=== PATIENT | male | born 1960 | race Caucasian/White ===

== ENCOUNTER 2017-01-22 | Outpatient (CLI) | payer OTHER | END 2017-01-22 20:55 | disposition critical access hospital (66) | DX: R55 Syncope and collapse (principal) | CPT/HCPCS: A0425; A0427 ==

== ENCOUNTER 2017-01-22 21:13 | Emergency (ER) | payer OTHER ==
[2017-01-22] MEDS ORDERED: SODIUM CHLORIDE 0.9% 1,000 ML IV STA (21:28)
[2017-01-22] MEDS ORDERED: POTASSIUM BICARB 25 MEQ TABLET PO STA (22:46)
[2017-01-22] MEDS ORDERED: POTASSIUM BICARB 25 MEQ TABLET PO ONE (22:47)
== END 2017-01-22 23:10 | disposition home or self-care (01) ==
DX: R55 Syncope and collapse (principal); E87.6 Hypokalemia; I10 Essential (primary) hypertension
CPT/HCPCS: 36415; 80048; 84484; 85025; 93005; 93010; 99284; A9270

== ENCOUNTER 2017-10-15 10:49 | Outpatient (CLI) | payer OTHER ==
[2017-10-15 13:31] LABS: ALBUMIN/GLOBULIN RATIO 1.3 (1.0-2.2); BILIRUBIN,TOTAL 0.7 mg/dL (0.2-1.0); BUN - BLOOD UREA NITROGEN 19 mg/dL (6-20); CALCIUM 9.2 mg/dL (8.5-10.3); CARBON DIOXIDE - CO2 27 mmol/L (21-32); CHLORIDE 104 mmol/L (101-111); CHOLESTEROL 180 mg/dL; CREATININE 1.2 mg/dL (0.6-1.2); GFR - MDRD 62 (>89); GLUCOSE 88 mg/dL (70-100); HDL CHOLESTEROL 45 mg/dL; LDL/HDL RATIO 2.5 (<3.6); POTASSIUM 3.7 mmol/L (3.5-5.0); SODIUM 138 mmol/L (135-145); TOTAL PROTEIN 7.2 g/dL (6.7-8.2); TRIGLYCERIDES 112 mg/dL; VLDL CHOLESTEROL 22 mg/dL
== END 2017-10-15 10:50 | disposition home or self-care (01) ==
LOC: LAB.WCP 10:49
PROVIDERS: ATTEND Family Medicine
DX: E78.5 Hyperlipidemia, unspecified (principal); I10 Essential (primary) hypertension; Z12.5 Encounter for screening for malignant neoplasm of prostate
CPT/HCPCS: 36415; 80053; 80061; 84153

== ENCOUNTER 2017-11-08 08:00 | Outpatient (CLI) | payer OTHER | END 2017-11-08 08:01 | disposition home or self-care (01) | LOC: LAB.R 08:00 | PROVIDERS: ATTEND Family Medicine | DX: N39.0 Urinary tract infection, site not specified (principal) | CPT/HCPCS: 87086 ==

== ENCOUNTER 2018-01-08 01:28 | Emergency (ER) | payer OTHER ==
[2018-01-08] MEDS ORDERED: FAMOTIDINE 20 MG/2 ML VIAL IVP STA (01:41)
[2018-01-08] MEDS ORDERED: MAG HYDROX/AL HYDROX/SIMETH 30 ML UDC PO STA (01:41)
[2018-01-08] MEDS ORDERED: LIDOCAINE VISCOUS 2% 15 ML UDC MM STA (01:41)
--- NOTE | 2018-01-08 01:45 | ED Physician Documentation ---
PD HPI CHEST PAIN - Stated complaint Stated Complaint: CHEST PX - Chief complaint Chief Complaint: Cardiac - History obtained from History obtained from: Patient, Family - History of Present Illness Timing - onset: Today Timing - onset during: Eating Timing - details: Abrupt onset, Still present Quality: Sharp Location: Substernal Radiation: Back Worsened by: No: Exertion, Inspiration Associated symptoms: Nausea. No: Shortness of air, Diaphoresis, Vomiting, Feeling faint / dizzy Similar symptoms before: Has not had sx before Recently seen: Not recently seen - Additional information Additional information: Patient is a 57 year old male with no significant past medical history who is presenting to the emergency department for substernal chest pain. Patient states that he had chicken and broccoli for dinner, and then he had tacos for "dessert" patient states that he then took a tylenol with red wine to help him sleep better and he developed substernal pain that radiated to his back and epigastric region. Patient denies any cardiac history with himself or his family. Review of Systems Constitutional: denies: Fever, Chills Eyes: reports: Reviewed and negative Ears: reports: Reviewed and negative Nose: reports: Reviewed and negative Throat: denies: Sore throat Cardiac: reports: Chest pain / pressure. denies: Pedal edema, Calf pain Respiratory: denies: Dyspnea, Cough, Wheezing GI: reports: Abdominal Pain, Nausea. denies: Vomiting, Constipation, Diarrhea : reports: Reviewed and negative Skin: reports: Reviewed and negative Musculoskeletal: reports: Back pain Neurologic: denies: Generalized weakness, Focal weakness, Numbness, Headache Immunocompromised: denies: Immunocompromised PD PAST MEDICAL HISTORY - Past Medical History Past Medical History: No Cardiovascular: None Respiratory: None Neuro: None Endocrine/Autoimmune: None GI: None : None HEENT: None Psych: None Musculoskeletal: None Derm: None - Past Surgical History Past Surgical History: No - Present Medications Home Medications: Ambulatory Orders Medication Instructions Recorded Confirmed No Known Home Medications [No 05/10/13 05/10/13 Known Home Medications] predniSONE [Deltasone] 10 mg PO DAILY #26 05/10/13 - Allergies Allergies/Adverse Reactions: Allergies Allergy/AdvReac Type Severity Reaction Status Date / Time tolmetin Allergy Severe Edema Verified 01/08/18 01:41 - Social History Does the pt smoke?: No Smoking Status: Never smoker Does the pt drink ETOH?: Yes Does the pt have substance abuse?: No - Immunizations Immunizations are current?: Yes - POLST Patient has POLST: No PD ED PE NORMAL - Vitals Vital signs reviewed: Yes - General General: Alert and oriented X 3, Well developed/nourished - HEENT HEENT: Atraumatic, PERRL - Neck Neck: Supple, no meningeal sign, No JVD - Cardiac Cardiac: RRR, No murmur - Respiratory Respiratory: No respiratory distress, Clear bilaterally - Abdomen Abdomen: Soft - Derm Derm: Normal color, Warm and dry, No rash - Extremities Extremities: No deformity, Normal ROM s pain, No calf tenderness / cord - Neuro Neuro: Alert and oriented X 3, No motor deficit, No sensory deficit, Normal speech Eye Opening: Spontaneous Motor: Obeys Commands Verbal: Oriented GCS Score: 15 PD ED PE EXPANDED - Abdomen Abdomen: Tender to palpation, Epigastric Results - Vitals Vitals: Vital Signs - 24 hr 01/08/18 01/08/18 01/08/18 01:30 02:07 02:41 Temperature 36.3 C L Heart Rate 73 61 60 Respiratory 17 16 14 Rate Blood Pressure 160/99 H 152/83 H 131/79 H O2 Saturation 100 99 96 01/08/18 01/08/18 01/08/18 02:54 03:18 04:01 Temperature Heart Rate 56 L 55 L 60 Respiratory 14 18 14 Rate Blood Pressure 131/79 H 103/67 O2 Saturation 99 95 97 01/08/18 01/08/18 01/08/18 04:48 05:07 05:10 Temperature Heart Rate 48 L 50 L 56 L Respiratory 16 16 14 Rate Blood Pressure 103/74 96/59 L 96/59 L O2 Saturation 100 99 100 01/08/18 01/08/18 01/08/18 05:20 05:21 05:25 Temperature Heart Rate 71 62 66 Respiratory 14 14 18 Rate Blood Pressure 140/81 H 138/72 H O2 Saturation 99 100 100 01/08/18 01/08/18 01/08/18 05:30 05:39 05:43 Temperature Heart Rate 71 70 78 Respiratory 14 18 11 L Rate Blood Pressure 140/81 H 131/76 H O2 Saturation 99 99 96 01/08/18 01/08/18 01/08/18 05:46 05:50 05:51 Temperature Heart Rate 80 84 Respiratory 14 14 15 Rate Blood Pressure 131/83 H O2 Saturation 96 98 99 01/08/18 06:21 Temperature Heart Rate 87 Respiratory 15 Rate Blood Pressure 135/81 H O2 Saturation 99 Oxygen O2 Source Room air - EKG (time done) 0134 Rate: Rate (enter#) (68) Rhythm: NSR [place]: LAD Intervals: Normal [place] Ischemia: ST depression Compare to prior EKG: Unchanged from prior EKG Computer interpretation: Agree with computer 0528 Rate: Rate (enter#) (69) Rhythm: NSR [place]: LAD Intervals: Normal [place] Ischemia: ST depression Compare to prior EKG: Unchanged from prior EKG - Labs Labs: Laboratory Tests 01/08/18 01/08/18 01/08/18 01:50 01:50 01:50 WBC 11.0 H RBC 5.49 Hgb 16.7 Hct 49.1 MCV 89.6 MCH 30.4 MCHC 34.0 RDW 13.8 Plt Count 209 MPV 8.1 Neut # 8.8 H Lymph # 0.9 L Rhea # 0.9 Eos # 0.3 Baso # 0.1 Absolute Nucleated RBC 0.00 Nucleated RBC % 0.0 PT INR D-Dimer Sodium 137 Potassium 4.0 Chloride 99 L Carbon Dioxide 25 Anion Gap 13.0 BUN 30 H Creatinine 1.2 Estimated GFR (MDRD) 62 L Glucose 143 H Calcium 9.9 Total Bilirubin 0.6 AST 23 ALT 23 Alkaline Phosphatase 70 Troponin I < 0.04 B-Natriuretic Peptide Total Protein 7.1 Albumin 4.3 Globulin 2.8 Albumin/Globulin Ratio 1.5 Lipase 29 Blood Type Blood Type Recheck Antibody Screen 01/08/18 01/08/18 01/08/18 01:50 01:50 01:50 WBC RBC Hgb Hct MCV MCH MCHC RDW Plt Count MPV Neut # Lymph # Rhea # Eos # Baso # Absolute Nucleated RBC Nucleated RBC % PT INR D-Dimer 1528.0 H Sodium Potassium Chloride Carbon Dioxide Anion Gap BUN Creatinine Estimated GFR (MDRD) Glucose Calcium Total Bilirubin AST ALT Alkaline Phosphatase Troponin I B-Natriuretic Peptide 31 Total Protein Albumin Globulin Albumin/Globulin Ratio Lipase Blood Type Blood Type Recheck O POSITIVE Antibody Screen 01/08/18 01/08/18 01/08/18 04:50 05:00 05:00 WBC RBC Hgb Hct MCV MCH MCHC RDW Plt Count MPV Neut # Lymph # Rhea # Eos # Baso # Absolute Nucleated RBC Nucleated RBC % PT 12.5 INR 1.1 D-Dimer Sodium Potassium Chloride Carbon Dioxide Anion Gap BUN Creatinine Estimated GFR (MDRD) Glucose Calcium Total Bilirubin AST ALT Alkaline Phosphatase Troponin I < 0.04 B-Natriuretic Peptide Total Protein Albumin Globulin Albumin/Globulin Ratio Lipase Blood Type O POSITIVE Blood Type Recheck Antibody Screen NEGATIVE - Rads (name of study) chest x-ray Radiology: Final report received (mild cardiomegaly) ct angio Radiology: Final report received (no PE but 7cm aortic aneursym) PD MEDICAL DECISION MAKING - ED course Complexity details: reviewed old records, reviewed results, re-evaluated patient , considered differential, d/w patient, d/w family ED course: Patient was seen and examined at bedside. ekg was performed and showed some ST segment depressions in lateral leads but when compared to a previous a year ago there was no change, IV access was gained and labs were drawn. patient was treated with pepcid, maalox and viscous lidocaine. chest x-ray was performed. Patient's chest did not improve initially with the GI medications. patient was treated with morphine 4mg. Patient's d-dimer was elevated adn CT PE study was performed. When patient returned from imaging the results were reviewed, patient was found to have a 7cm ascending aortic aneurysm. patient was still having chest pain. Patient's HR suddlely dropped from the 60s down to 38-40. Multiple hospitals were paged. Patient was treated with atropine which improved his bradycardia. Patient was treated with a liter bolus for hypotension. Case was discussed with [facility]. First with the CT surgeon who said admit to medicine or cardiology and he would consult. Medicine said admit to cardiology. Case was discussed with pipe fitter Dr. Ladd who accepted the patient but requested CT aorta to better evaluate for dissection. Patient was treated with fentayl for repeated chest pain. patient's repeat ekg remained unchanged. Patient's second troponin remained negative. Arrangements were made with [facility]. CT aorta revealed aortic dissection. [facility] was contacted and made aware of the findings and were prepping the OR. Patient was transferred in critical condition. Departure - Departure Disposition: 02 Transfer Acute Care Hosp Clinical Impression: Aortic aneurysm, Chest pain Condition: Critical Discharge Date/Time: 01/08/18 06:55
[2018-01-08 02:13] LABS: BASOPHILS # (AUTO) 0.1 10^3/uL (0.0-0.1); BASOPHILS % (AUTO) 0.6 %; EOSINOPHILS # (AUTO) 0.3 10^3/uL (0.0-0.7); EOSINOPHILS % (AUTO) 2.9 %; HGB - HEMOGLOBIN 16.7 g/dL (14.0-18.0); LYMPHOCYTES # (AUTO) 0.9 10^3/uL (1.5-3.5); LYMPHOCYTES % (AUTO) 7.8 %; MEAN CORPUSCULAR HEMOGLOBIN 30.4 pg (27.0-31.0); MEAN CORPUSCULAR VOLUME 89.6 fL (80.0-94.0); MEAN PLATELET VOLUME 8.1 fL (7.4-11.4); MONOCYTES # (AUTO) 0.9 10^3/uL (0.0-1.0); MONOCYTES % (AUTO) 8.6 %; NEUTROPHILS # (AUTO) 8.8 10^3/uL (1.5-6.6); NEUTROPHILS % (AUTO) 80.1 %; PLT - PLATELET COUNT 209 10^3/uL (130-450); RED BLOOD COUNT 5.49 10^6/uL (4.70-6.10); RED CELL DISTRIBUTION WIDTH 13.8 % (12.0-15.0)
[2018-01-08 02:31] LABS: ALBUMIN 4.3 g/dL (3.2-5.5); ALBUMIN/GLOBULIN RATIO 1.5 (1.0-2.2); BILIRUBIN,TOTAL 0.6 mg/dL (0.2-1.0); CALCIUM 9.9 mg/dL (8.5-10.3); CREATININE 1.2 mg/dL (0.6-1.2); TOTAL PROTEIN 7.1 g/dL (6.7-8.2)
[2018-01-08] MEDS ORDERED: MORPHINE 2 MG/ML CARPUJECT IVP STA (02:31)
--- NOTE | 2018-01-08 02:41 | XRAY Report ---
EXAM: CHEST RADIOGRAPHY EXAM DATE: 01/08/2018 02:08 AM. CLINICAL HISTORY: Chest pain COMPARISON: None. TECHNIQUE: 1 view. FINDINGS: Lungs/Pleura: No focal pneumonia or edema evident. No gross pneumothorax or pleural effusion. Mediastinum: Mild cardiomegaly. Mildly tortuous aortic contour. Other: None. IMPRESSION: Mild cardiomegaly without overt heart failure. [facility] Referring Provider Line: [phone] SITE ID: [id number]
[2018-01-08] MEDS ORDERED: IOPAMIDOL-300 100 ML VIAL ONE ×2 (03:40→06:01)
[2018-01-08] MEDS: IOPAMIDOL-300 100 ML VIAL IVP ONE ×2 (04:00→06:27)
--- NOTE | 2018-01-08 04:37 | CT Preliminary Report ---
Exam: CT CHEST ANGIO (PE) IMPRESSION: 1. No acute intrathoracic abnormality. Specifically no evidence of pulmonary emboli through the segme ntal pulmonary arteries. 2. Marked fusiform aneurysmal dilatation of the ascending thoracic aorta measuring up to 7.0 cm proxi iron with effacement of the sinotubular junction. There is also minimal reflux of contrast into the IVC which can be seen with right heart dysfunction. 3. Nonobstructing bilateral nephrolithiasis [facility] SITE ID: [id number]
[2018-01-08] MEDS ORDERED: SODIUM CHLORIDE 0.9% 1,000 ML IV ONE (04:52)
--- NOTE | 2018-01-08 04:52 | CT Report ---
EXAM: CT ANGIOGRAM CHEST EXAM DATE: 01/08/2018 04:03 AM. CLINICAL HISTORY: Chest pain, elevated dimer. COMPARISON: Chest radiograph 01/08/2018.. TECHNIQUE: Routine helical imaging was performed through the chest in the pulmonary arterial phase. I V Contrast: 80 cc Isovue 300. Reconstructions: Coronal and sagittal MIP reconstructions..Sagittal and coronal. In accordance with CT protocol optimization, one or more of the following dose reduction techniques w ere utilized for this exam: automated exposure control, adjustment of mA and/or KV based on patient s ize, or use of iterative reconstructive technique. FINDINGS: Pulmonary Arteries: Diagnostic quality: Adequate through the segmental arteries. No evidence for acute or chronic pulmona ry emboli. RV/LV is within normal limits. There is no interventricular septal bowing. There is minimal reflux of contrast into the IVC which can be seen with right heart dysfunction. Lungs/Pleura: No mass or consolidation. There is minimal bibasilar dependent atelectasis. No evidence of edema. Central airways are patent. No pleural effusion or pneumothorax. Mediastinum: There is mild cardiomegaly. No significant pericardial effusion. -No significant contrast present within the left heart or aorta. There is significant dilatation of t he ascending thoracic aorta measuring up to 7.0 cm proximally with apparent effacement of the sinotub ular junction. Distal ascending thoracic aorta measures up to 4.0 cm. No significant calcific atheros clerosis of the aorta including no significant calcification of the aortic valve. -No abnormally enlarged mediastinal or hilar lymph nodes. Upper Abdomen: The kidneys are only partially visualized, but no evidence of hydronephrosis. Bilatera l punctate nonobstructing calculi present. Partially visualized exophytic left renal cyst in the inte rpolar region laterally. Otherwise unremarkable essentially noncontrast appearance of the upper abdom en. Other: Visualized lower thyroid is unremarkable. No abnormally enlarged axillary lymph nodes. No acut e osseous abnormality or suspicious focal osseous lesion. IMPRESSION: 1. No acute intrathoracic abnormality. Specifically no evidence of pulmonary emboli through the segme ntal pulmonary arteries. 2. Marked fusiform aneurysmal dilatation of the ascending thoracic aorta measuring up to 7.0 cm proxi iron with effacement of the sinotubular junction. There is also minimal reflux of contrast into the IVC which can be seen with right heart dysfunction. 3. Nonobstructing bilateral nephrolithiasis. [facility] Referring Provider Line: [phone] SITE ID: [id number]
[2018-01-08] MEDS ORDERED: ATROPINE 0.4 MG/ML VIAL IVP ONE (05:05)
[2018-01-08] MEDS ORDERED: ONDANSETRON 4 MG/2 ML VIAL IVP STA (05:14)
[2018-01-08] MEDS ORDERED: ONDANSETRON 4 MG/2 ML VIAL ONE (05:17)
[2018-01-08 05:25] LABS: INR 1.1 (0.8-1.2); PT - PROTHROMBIN TIME 12.5 secs (9.9-12.6)
[2018-01-08] MEDS ORDERED: fentaNYL 100 MCG/2 ML VIAL IVP STA ×2 (05:27→06:02)
[2018-01-08 06:21] VITALS: BP 135/81
[2018-01-08] MEDS ORDERED: IOPAMIDOL-300 100 ML VIAL IVP ONE (06:40)
--- NOTE | 2018-01-08 06:55 | CT Preliminary Report ---
Exam: CT ABDOMEN ANGIO IMPRESSION: 1. Dilated ascending thoracic aorta with extensive type A aortic dissection arising from the valve pl ane extending through the abdominal aortic bifurcation and at least minimally into the right common i liac artery, the latter not completely imaged. Dissection extends minimally into the right brachiocep halic artery as well as the left renal artery with the right renal artery supplied by the false lumen and left renal artery supplied by both lumens. Remaining major vessels supplied by the true lumen. 2. Nonspecific hypodense lesion arising from the left kidney measuring up to 2.2 cm diameter. This me asures upper limits normal fluid density. Consider nonemergent outpatient ultrasound for further eval uation to assess whether this represents a cyst versus possible solid lesion. [facility] The above findings concerning the aortic dissection were discussed with Dr. Mccoy by Dr. Carlo cnaales at 06:50 hrs on 01/08/18. SITE ID: [id number]
--- NOTE | 2018-01-08 07:04 | CT Report ---
EXAM: CT ANGIOGRAM CHEST, ABDOMEN EXAM DATE: 01/08/2018 06:23 AM. CLINICAL HISTORY: Chest pain, aortic aneursym. COMPARISONS: CT pulmonary angiogram 01/08/2018. TECHNIQUE: Routine axial helical CT angiographic imaging was performed through the chest, abdomen. IV Contrast: Present. Reconstructions: Coronal, sagittal, and coronal and sagittal MIP reconstructions. In accordance with CT protocol optimization, one or more of the following dose reduction techniques w ere utilized for this exam: automated exposure control, adjustment of mA and/or KV based on patient s ize, or use of iterative reconstructive technique. FINDINGS: Vascular Structures: There is a type a dissection of the aorta arising from the aortic valve plane ex tending through the aortic arch and inferiorly through the descending aorta and abdominal aorta with minimal extension partially visualized into the right common iliac artery. Dissection also extends in to the right brachiocephalic artery. No definite extension into the left common carotid or left subcl fariba arteries. No extension into the right common carotid or subclavian artery. -A dissection flap is near completely collapsed anteriorly beyond the level of the diaphragmatic hiat us with the true lumen supplying the celiac and superior mesenteric arteries which opacify normally. Dissection flap extends minimally into the left renal artery which is supplied both by the true and f alse lumen. False lumen supplies the right renal artery. There is minimal opacification proximally of the FLETCHER which appears to be supplied by the true lumen with again near complete anterior collapse of the dissection flap. -Possible minimal extension of the dissection into the right common iliac artery. As on recent CT pulmonary angiogram there is significant fusiform dilatation of the ascending thoraci c aorta with effacement of the sinotubular junction measuring up to 6.7 cm. There is mild stenosis of both the proximal celiac and superior mesenteric arteries with post dilatat ion, greater involvement of the celiac. Hepatic arterial supply appears conventional. There are singl e bilateral renal arteries. Lungs/Pleura: No consolidation, nodules, or edema. No effusions or pneumothorax. Mediastinum: Normal. No cardiac enlargement or adenopathy. Abdominal Organs: The liver, spleen, pancreas, adrenal glands, gallbladder and bile ducts are unremar kable. There is nonobstructing bilateral punctate nephrolithiasis. Left renal hypodense lesion measur es up to 20 Hounsfield units and 22 mm diameter (/).. Peritoneal Cavity: Normal. No free fluid, free air, or acute inflammatory process. Pelvic Organs: Not included on the exam. Bones: No significant abnormality. Other: None. IMPRESSION: 1. Dilated ascending thoracic aorta with extensive type A aortic dissection arising from the valve pl ane extending through the abdominal aortic bifurcation and at least minimally into the right common i liac artery, the latter not completely imaged. Dissection extends minimally into the right brachiocep halic artery as well as the left renal artery with the right renal artery supplied by the false lumen and left renal artery supplied by both lumens. Remaining major vessels supplied by the true lumen. 2. Nonspecific hypodense lesion arising from the left kidney measuring up to 2.2 cm diameter. This me asures upper limits normal fluid density. Consider nonemergent outpatient ultrasound for further eval uation to assess whether this represents a cyst versus possible solid lesion. KAIA The above findings concerning the aortic dissection were discussed with Dr. Mccoy by Dr. Carlo canales at 06:50 hrs on 01/08/18. Referring Provider Line: [phone] SITE ID: [id number]
--- NOTE | 2018-01-08 07:04 | CT Report ---
EXAM: CT ANGIOGRAM CHEST, ABDOMEN EXAM DATE: 01/08/2018 06:23 AM. CLINICAL HISTORY: Chest pain, aortic aneursym. COMPARISONS: CT pulmonary angiogram 01/08/2018. TECHNIQUE: Routine axial helical CT angiographic imaging was performed through the chest, abdomen. IV Contrast: Present. Reconstructions: Coronal, sagittal, and 3D MIP reconstructions of the aorta. In accordance with CT protocol optimization, one or more of the following dose reduction techniques w ere utilized for this exam: automated exposure control, adjustment of mA and/or KV based on patient s ize, or use of iterative reconstructive technique. FINDINGS: Vascular Structures: There is a type A dissection of the aorta arising from the aortic valve plane ex tending through the aortic arch and inferiorly through the descending aorta and abdominal aorta with minimal extension partially visualized into the right common iliac artery. Dissection also extends in to the right brachiocephalic artery. No definite extension into the left common carotid or left subcl fariba arteries. No extension into the right common carotid or subclavian artery. -A dissection flap is near completely collapsed anteriorly beyond the level of the diaphragmatic hiat us with the true lumen supplying the celiac and superior mesenteric arteries which opacify normally. Dissection flap extends minimally into the left renal artery which is supplied both by the true and f alse lumen. False lumen supplies the right renal artery. There is minimal opacification proximally of the FLETCHER which appears to be supplied by the true lumen with again near complete anterior collapse of the dissection flap. -Possible minimal extension of the dissection into the right common iliac artery. As on recent CT pulmonary angiogram, there is significant fusiform dilatation of the ascending thorac ic aorta with effacement of the sinotubular junction measuring up to 6.7 cm. There is mild stenosis of both the proximal celiac and superior mesenteric arteries with poststenotic dilatation, greater involvement of the celiac. Hepatic arterial supply appears conventional. There a re single bilateral renal arteries. Lungs/Pleura: No consolidation, nodules, or edema. No effusions or pneumothorax. Mediastinum: Normal. No cardiac enlargement or adenopathy. Abdominal Organs: The liver, spleen, pancreas, adrenal glands, gallbladder and bile ducts are unremar kable. There is nonobstructing bilateral punctate nephrolithiasis. Left renal hypodense lesion measur es up to 20 Hounsfield units and 22 mm diameter (2/83). Peritoneal Cavity: Normal. No free fluid, free air, or acute inflammatory process. Pelvic Organs: Not included on the exam. Bones: No significant abnormality. Other: None. IMPRESSION: 1. Dilated ascending thoracic aorta with extensive type A aortic dissection arising from the valve pl ane extending through the abdominal aortic bifurcation and at least minimally into the right common i liac artery, the latter not completely imaged. Dissection extends minimally into the right brachiocep halic artery as well as the left renal artery with the right renal artery supplied by the false lumen and left renal artery supplied by both lumens. Remaining major vessels supplied by the true lumen. 2. Nonspecific hypodense lesion arising from the left kidney measuring up to 2.2 cm diameter. This me asures upper limits normal fluid density. Consider nonemergent outpatient ultrasound for further eval uation to assess whether this represents a cyst versus possible solid lesion. [facility] The above findings concerning the aortic dissection were discussed with Dr. Mccoy by Dr. Carlo canales at 06:50 hrs on 01/08/18. Referring Provider Line: [phone] SITE ID: [id number]
== END 2018-01-08 06:55 | disposition short-term general hospital (02) ==
LOC: ED 01:28
DX: I71.01 Dissection of thoracic aorta (principal); R00.1 Bradycardia, unspecified; I95.9 Hypotension, unspecified; I51.7 Cardiomegaly; R79.89 Other specified abnormal findings of blood chemistry
CPT/HCPCS: 36415; 71045; 71275; 74175; 80053; 83690; 83880; 84484; 85025; 85379; 85610; 86850; 86900; 86901; 93005; 96361; 96374; 96375; 96376; 99285; A9270; Q9967

== ENCOUNTER 2018-01-28 08:49 | Outpatient (CLI) | payer OTHER | END 2018-01-28 08:50 | disposition home or self-care (01) | LOC: LAB.R 08:49 | PROVIDERS: ATTEND Internal Medicine Cardiovascular Disease | DX: Z95.2 Presence of prosthetic heart valve (principal) | CPT/HCPCS: 85610 ==

== ENCOUNTER 2018-02-07 09:55 | Outpatient (CLI) | payer OTHER | END 2018-02-07 09:56 | disposition home or self-care (01) | LOC: NS 09:55 | PROVIDERS: ATTEND Family Medicine | DX: Z71.3 Dietary counseling and surveillance (principal); R73.01 Impaired fasting glucose; I38 Endocarditis, valve unspecified; I71.00 Dissection of unspecified site of aorta; Z68.25 Body mass index [BMI] 25.0-25.9, adult | CPT/HCPCS: 97802 ==

== ENCOUNTER 2018-02-15 09:08 | Outpatient (CLI) | payer OTHER | END 2018-02-15 09:09 | disposition home or self-care (01) | LOC: LAB 09:08 | PROVIDERS: ATTEND Internal Medicine Cardiovascular Disease | DX: Z95.2 Presence of prosthetic heart valve (principal); Z79.01 Long term (current) use of anticoagulants | CPT/HCPCS: 85610 ==

== ENCOUNTER 2018-02-17 09:21 | Outpatient (CLI) | payer OTHER | END 2018-02-17 09:22 | disposition home or self-care (01) | LOC: RT 09:21 | PROVIDERS: ATTEND Internal Medicine Cardiovascular Disease | DX: I48.91 Unspecified atrial fibrillation (principal) | CPT/HCPCS: 93005 ==

== ENCOUNTER 2018-02-18 07:52 | Outpatient (CLI) | payer OTHER ==
[2018-02-18 08:51] LABS: ALBUMIN/GLOBULIN RATIO 1.3 (1.0-2.2); ALKALINE PHOSPHATASE 77 IU/L (42-121); ALT ALANINE AMINOTRANSFERASE 24 IU/L (10-60); AST ASPARTATE AMINOTRANSFERASE 19 IU/L (10-42); BILIRUBIN,TOTAL 0.4 mg/dL (0.2-1.0); BUN - BLOOD UREA NITROGEN 21 mg/dL (6-20); CALCIUM 9.2 mg/dL (8.5-10.3); CARBON DIOXIDE - CO2 24 mmol/L (21-32); CHLORIDE 109 mmol/L (101-111); CHOL/HDL RATIO 3.2 (<5.0); CHOLESTEROL 118 mg/dL; CREATININE 1.2 mg/dL (0.6-1.2); GFR - MDRD 62 (>89); GLUCOSE 99 mg/dL (70-100); HDL CHOLESTEROL 37 mg/dL; LDL CHOLESTEROL,CALCULATED 70 mg/dL; LDL/HDL RATIO 1.9 (<3.6); SODIUM 139 mmol/L (135-145); TOTAL PROTEIN 7.1 g/dL (6.7-8.2); VLDL CHOLESTEROL 11 mg/dL
[2018-02-18 09:11] LABS: THYROID STIMULATING HORMONE 2.54 uIU/mL (0.34-5.60)
[2018-02-18 09:13] LABS: FREE T4 (FREE THYROXINE) 1.12 ng/dL (0.58-1.64)
== END 2018-02-18 07:53 | disposition home or self-care (01) ==
LOC: LAB 07:52
PROVIDERS: ATTEND Internal Medicine Cardiovascular Disease
DX: I48.91 Unspecified atrial fibrillation (principal)
CPT/HCPCS: 36415; 80053; 80061; 83721; 84439; 84443

== ENCOUNTER 2018-03-01 11:41 | Outpatient (CLI) | payer OTHER | END 2018-03-01 11:42 | disposition home or self-care (01) | LOC: LAB.N 11:41 | PROVIDERS: ATTEND Internal Medicine Cardiovascular Disease | DX: Z95.2 Presence of prosthetic heart valve (principal) | CPT/HCPCS: 85610 ==

== ENCOUNTER 2018-03-07 16:20 | Observation (INO) | payer OTHER ==
[2018-03-07 17:07] LABS: BASOPHILS # (AUTO) 0.1 10^3/uL (0.0-0.1); BASOPHILS % (AUTO) 1.5 %; EOSINOPHILS # (AUTO) 0.4 10^3/uL (0.0-0.7); EOSINOPHILS % (AUTO) 5.7 %; HGB - HEMOGLOBIN 14.3 g/dL (14.0-18.0); LYMPHOCYTES # (AUTO) 0.9 10^3/uL (1.5-3.5); LYMPHOCYTES % (AUTO) 14.3 %; MEAN CORPUSCULAR HEMOGLOBIN 28.4 pg (27.0-31.0); MEAN CORPUSCULAR HGB CONC 32.3 g/dL (32.0-36.0); MEAN CORPUSCULAR VOLUME 88.1 fL (80.0-94.0); MEAN PLATELET VOLUME 8.2 fL (7.4-11.4); MONOCYTES # (AUTO) 0.7 10^3/uL (0.0-1.0); MONOCYTES % (AUTO) 10.8 %; NEUTROPHILS # (AUTO) 4.3 10^3/uL (1.5-6.6); NEUTROPHILS % (AUTO) 67.7 %; PLT - PLATELET COUNT 272 10^3/uL (130-450); RED BLOOD COUNT 5.04 10^6/uL (4.70-6.10); RED CELL DISTRIBUTION WIDTH 14.7 % (12.0-15.0); WHITE BLOOD COUNT 6.3 x10^3/uL (4.8-10.8)
[2018-03-07 17:17] LABS: ALBUMIN 4.4 g/dL (3.2-5.5); ALBUMIN/GLOBULIN RATIO 1.5 (1.0-2.2); BILIRUBIN,TOTAL 0.5 mg/dL (0.2-1.0); CALCIUM 9.3 mg/dL (8.5-10.3); CREATININE 1.2 mg/dL (0.6-1.2); TOTAL PROTEIN 7.4 g/dL (6.7-8.2)
--- NOTE | 2018-03-07 17:50 | ED Physician Documentation ---
PD HPI FOCAL NEURO - Stated complaint Stated Complaint: DOUBLE VISION/PX IN R ARM - Chief complaint Chief Complaint: Cardiac - History obtained from History obtained from: Patient - History of Present Illness Timing - onset: Yesterday (he has had intermittent diplopia with normal vision in each eye but doubled when both open. This was yesterday and then this morning had weakness in right arm where he could not hold object, that lasted just 5-10 minutes. Feeling of aching in right arm today. Vision is okay at this time and arm is not feeling weak right now. Talked with his Cardiology office who directed him to come to ER.) Timing - duration: Minutes Timing - details: Abrupt onset, Now resolved Severity of deficit: Moderate Weakness: Arm, Right Numbness: Arm, Right Associated symptoms: No: Headache, Nausea / vomiting, Neck pain Contributing factors: positive: Anticoagulated, Atrial fibrillation Baseline status: positive: A&OX3, ambulatory, indep Similar symptoms before: Has not had sx before (had chest pain and some arm discomfort with aortic dissection in Dec, that had surgery (graft) and aortic valve replacement. He has been doing okay. In fib post operatively. On anticoagulants.) Recently seen: Surgery (Early Dec emergently for aortic dissection.) Review of Systems Constitutional: denies: Fever, Chills Nose: denies: Rhinorrhea / runny nose, Congestion Throat: denies: Sore throat Cardiac: denies: Chest pain / pressure, Palpitations Respiratory: denies: Dyspnea, Cough GI: denies: Abdominal Pain, Nausea, Vomiting, Diarrhea Skin: denies: Rash, Lesions Neurologic: denies: Generalized weakness, Difficulty speaking, Near syncope, Syncope Endocrine: reports: Easy bruising / bleeding. denies: Weight loss PD PAST MEDICAL HISTORY - Past Medical History Cardiovascular: None Respiratory: None Neuro: None Endocrine/Autoimmune: None GI: None : None HEENT: None Psych: None Musculoskeletal: None Derm: None - Past Surgical History Past Surgical History: No - Present Medications Home Medications: Ambulatory Orders Medication Instructions Recorded Confirmed Amiodarone [Pacerone] 200 mg PO DAILY 03/07/18 Metoprolol Succinate [Toprol Xl] 30 mg PO DAILY 03/07/18 Warfarin [Coumadin] 1.5 mg PO 1400 03/07/18 Aspirin [Aspirin EC] 81 mg PO DAILYWM 03/08/18 03/08/18 Atorvastatin Calcium 20 mg PO QPM 03/08/18 03/08/18 - Allergies Allergies/Adverse Reactions: Allergies Allergy/AdvReac Type Severity Reaction Status Date / Time tolmetin Allergy Severe Edema Verified 03/07/18 16:29 - Social History Does the pt smoke?: No Smoking Status: Never smoker Does the pt drink ETOH?: Yes Does the pt have substance abuse?: No - Family History Family history: reports: Non contributory - Immunizations Immunizations are current?: Yes - POLST Patient has POLST: No PD ED PE NORMAL - Vitals Vital signs reviewed: Yes - General General: Alert and oriented X 3, No acute distress, Well developed/nourished - HEENT HEENT: Atraumatic, PERRL, EOMI, Pharynx benign - Neck Neck: Supple, no meningeal sign, No adenopathy, No bruit - Cardiac Cardiac: No murmur. No: RRR (irregular but normal rate) - Respiratory Respiratory: Clear bilaterally - Abdomen Abdomen: Soft, Non tender - Back Back: No CVA TTP - Derm Derm: Normal color, Warm and dry - Extremities Extremities: No deformity, No tenderness to palpate, Normal ROM s pain, No edema , No calf tenderness / cord - Neuro Neuro: Alert and oriented X 3, deputy juvenile officer 2-12 intact, No motor deficit, No sensory deficit, Normal speech Eye Opening: Spontaneous Motor: Obeys Commands Verbal: Oriented GCS Score: 15 - Psych Psych: Normal mood, Normal affect NIHSS - Level of Consciousness Level of consciousness: (0) Alert, Keenly responsive LOC Questions: (0) Answers both Q's correct LOC Commands: (0) Performs both correctly - Gaze Best Gaze: (0) Normal - Visual Visual: (0) No loss - Facial Palsy Facial Palsy: (0) Normal, symmetrical movement - Motor Arms (both separate) Motor Arm (right): (0) No drift Motor Arm (left): (0) No drift - Motor Legs (both separate) Motor Leg (right): (0) No drift Motor Leg (left): (0) No drift - Limb Ataxia Limb Ataxia: (0) Absent - Sensory Sensory: (0) Normal - Best Language Best Language: (0) No aphasia - Dysarthria Dysarthria: (0) Normal - Extinction and Inattention (formally neg Extinction and inattention: (0) No abnormality - Total Score/Results Total Score/Result: 0 Results - Vitals Vitals: Vital Signs - 24 hr 03/07/18 03/07/18 03/07/18 16:25 17:15 18:00 Temperature 36.7 C Heart Rate 90 84 86 Respiratory 16 16 16 Rate Blood Pressure 164/97 H 148/99 H 152/100 H O2 Saturation 99 97 97 03/07/18 20:02 Temperature Heart Rate 84 Respiratory 16 Rate Blood Pressure 135/80 H O2 Saturation 97 Oxygen O2 Source Room air - Labs Labs: Laboratory Tests 03/07/18 03/07/18 03/07/18 16:55 16:55 16:55 WBC 6.3 RBC 5.04 Hgb 14.3 Hct 44.4 MCV 88.1 MCH 28.4 MCHC 32.3 RDW 14.7 Plt Count 272 MPV 8.2 Neut # 4.3 Lymph # 0.9 L Isabella # 0.7 Eos # 0.4 Baso # 0.1 Absolute Nucleated RBC 0.00 Nucleated RBC % 0.0 PT 36.1 H INR 3.3 H Sodium 136 Potassium 4.0 Chloride 104 Carbon Dioxide 25 Anion Gap 7.0 BUN 20 Creatinine 1.2 Estimated GFR (MDRD) 62 L Glucose 96 Calcium 9.3 Magnesium Total Bilirubin 0.5 AST 21 ALT 25 Alkaline Phosphatase 78 Total Protein 7.4 Albumin 4.4 Globulin 3.0 Albumin/Globulin Ratio 1.5 Lipase 31 03/07/18 16:55 WBC RBC Hgb Hct MCV MCH MCHC RDW Plt Count MPV Neut # Lymph # Isabella # Eos # Baso # Absolute Nucleated RBC Nucleated RBC % PT INR Sodium Potassium Chloride Carbon Dioxide Anion Gap BUN Creatinine Estimated GFR (MDRD) Glucose Calcium Magnesium 2.3 Total Bilirubin AST ALT Alkaline Phosphatase Total Protein Albumin Globulin Albumin/Globulin Ratio Lipase - Rads (name of study) head CT Radiology: Prelim report reviewed (no acute bleed/ mass) PD MEDICAL DECISION MAKING - ED course Complexity details: considered differential (intermittent focal neuro symptoms. On blood thinner, so concern for small bleeds, but not seen on CT. Consider embolic but is on blood thinner. Could have very small focal CVA vs. TIA and so would want to evaluate with MRI, unavailable a this time. No signs of infection , but could consider septic emboli as well. ), d/w patient, d/w sql server consultant (manager validation [facility] - Continue the Coumadin and ASA, work up Neurologically. Then talked with Dr. Park, Hospitalist. ) Departure - Departure Disposition: ED Place in Observation Clinical Impression: Right arm weakness TIA (transient ischemic attack) Qualifiers: Transient cerebral ischemia type: unspecified Qualified Code(s): G45.9 - Transient cerebral ischemic attack, unspecified Condition: Stable Record reviewed to determine appropriate education?: Yes Discharge Date/Time: 03/07/18 21:37
[2018-03-07] MEDS ORDERED: SODIUM CHLORIDE 0.9% 1,000 ML IV ONE (18:22)
[2018-03-07] MEDS ORDERED: SODIUM CHLORIDE 0.9% 1,000 ML IV STA (18:25)
[2018-03-07 18:57] LABS: INR 3.3 (0.8-1.2); PT - PROTHROMBIN TIME 36.1 secs (9.9-12.6)
--- NOTE | 2018-03-07 19:12 | CT Report ---
EXAM: CT HEAD EXAM DATE: 03/07/2018 06:57 PM. CLINICAL HISTORY: Diplopia transient and then right arm weak , transient. COMPARISON: None. TECHNIQUE: Multiaxial CT images were obtained from the foramen magnum to the vertex. Reformats: Coron al. IV contrast: None. In accordance with CT protocol optimization, one or more of the following dose reduction techniques w ere utilized for this exam: automated exposure control, adjustment of mA and/or KV based on patient s ize, or use of iterative reconstructive technique. FINDINGS: Parenchyma: No intraparenchymal hemorrhage. No evidence of mass, midline shift, or CT findings of inf arction. Sifuentes-white differentiation is distinct. Extraaxial Spaces: Normal for age. No subdural or epidural collections. Ventricles: Normal in size and position. Sinuses and Orbits: Minimal mucosal thickening in ethmoid and maxillary sinuses. Small air-fluid leve ls and sphenoid sinus. Bones: Unremarkable. Other: None. IMPRESSION: Mild evidence of sinusitis. Otherwise normal head CT scan. [facility] Referring Provider Line: [phone] SITE ID: [id number]
[2018-03-07] MEDS ORDERED: oxyCODONE 5 MG TABLET PO PRN ×2 (20:45)
[2018-03-07] MEDS ORDERED: ZOLPIDEM 5 MG TABLET PO PRN (20:45)
[2018-03-07] MEDS ORDERED: SODIUM CHLORIDE FLUSH 0.9% 10 ML SYRINGE IVP PRN (20:45)
[2018-03-07] MEDS ORDERED: PROCHLORPERAZINE 10 MG/2 ML VIAL IVP PRN (20:45)
[2018-03-07] MEDS ORDERED: ONDANSETRON 4 MG/2 ML VIAL IVP PRN (20:45)
[2018-03-07] MEDS ORDERED: ATORVASTATIN 40 MG TABLET PO SCH (21:00)
[2018-03-07] MEDS ORDERED: IOPAMIDOL-300 100 ML VIAL ONE (21:09)
[2018-03-07] MEDS ORDERED: IOPAMIDOL-300 100 ML VIAL IVP ONE (21:39)
--- NOTE | 2018-03-07 21:47 | HISTORY & PHYSICAL EXAMINATION ---
Chief Complaint - Chief Complaint Chief Complaint: Right arm weakness History of Present Illness - Admitted From Admitted From:: Emergency Department - History Obtained From Records Reviewed: Yes History obtained from: Patient Exam Limitations: None - History of Present Illness HPI Comment/Other: Patient is a 57-year-old gentleman with a past medical history significant for a type a aortic dissection and a bicuspid aortic valve status post aortic graft and aortic valve replacement in December 2017 with postop complication of atrial fibrillation who presents to the emergency department with a chief complaint of right arm weakness. The patient states that he was in his normal state of health until about 2 days ago when he states that he was sitting and began to experience diplopia. He describes double vision that lasted for about 3-4 minutes after which he felt lightheaded for about 5 minutes but then symptoms completely resolved. He states that that morning he had drank 2 cups of coffee and had had very little to drink otherwise. The patient states that the following day while he was cutting up a cantaloupe he began to notice that his right arm became very weak. He states that he went to sisal picker a cup of coffee and could not do it. He states that this lasted for about 5 minutes before it completely resolved. He states that today he was lying down to rest when he began having pain in his right arm. He states that his right arm has never hurt like this before. He states the pain was a dull aching pain and lasted for about 15 minutes but then completely resolved. Once he told his what had been happening his asked him to go to the emergency department. Initially the patient was reluctant but finally agreed to come in. Patient denies any fevers, chills, headache, blurred vision, runny nose, sore throat, nasal congestion, difficulty swallowing, chest pain, shortness of air, orthopnea, PND, increased lower extremity swelling, abdominal pain, nausea, vomiting, diarrhea, constipation, urinary urgency, urinary frequency, dysuria, joint pain, joint swelling, muscle aches, back pain, neck stiffness, rash, skin changes or hair loss. On presentation to the emergency department the patient was afebrile he was slightly tachycardic and hypertensive but otherwise was not in any respiratory distress and saturating well on room air. The patient's lab work was within normal limits. The patient's INR was 3.3 as he is on Coumadin for his atrial fibrillation. The patient had no deficits on his neurologic examination. The patient did undergo a CT of his head in the emergency department which revealed mild evidence of sinusitis but otherwise was normal. The patient's EKG showed that the patient was in atrial flutter with no acute ischemic changes. Given the patient's nonspecific symptoms and history of atrial fibrillation emergency room physician was concerned about the possibility of a stroke or other neurologic condition such as MS and asked if we could observe the patient for neuro checks and an MRI as well as CT angiogram of the head and neck. History - Past Medical History Cardiovascular: reports: None, Atrial fibrillation (On Coumadin), Valve disorder (Bicuspid aortic valve status post valve replacement), Other (Type aortic dissection status post aortic graft) Respiratory: reports: None Neuro: reports: None Endocrine/Autoimmune: reports: None GI: reports: None : reports: None HEENT: reports: None Psych: reports: None Musculoskeletal: reports: None Derm: reports: None MRSA Hx?: No - Past Surgical History Cardiovascular: reports: Valve replacement, Vascular surgery (Graft of aortic) - Family & Social History Family History: Mother: (Mother had MS), Father: Alive and Well, Sister : Alive and Well, Brother: Alive and Well Living arrangement: At home Living Situation: With spouse/s.o. Social History Notes: Patient lives in [place] with his . He has 4 children and 5 grandchildren. He works for [employer]. He is a non- smoker, does not drink alcohol and denies any illicit drug use. - POLST Patient has POLST: No POLST Status: Full Code Meds/Allgy - Home Medications Home Medications: Ambulatory Orders Medication Instructions Recorded Confirmed Amiodarone [Pacerone] 200 mg PO DAILY 03/07/18 03/07/18 Aspirin 81 mg PO 03/07/18 Atorvastatin [Lipitor] 20 mg 03/07/18 Metoprolol Succinate [Toprol Xl] 30 mg PO DAILY 03/07/18 03/07/18 Warfarin [Coumadin] 1.5 mg PO 1400 03/07/18 03/07/18 - Allergies Allergies/Adverse Reactions: Allergies Allergy/AdvReac Type Severity Reaction Status Date / Time tolmetin Allergy Severe Edema Verified 03/07/18 16:29 Review of Systems - Other Findings Other Findings: A comprehensive review of systems was performed the pertinent positives and negatives are stated above in the HPI and the remainder of the review of systems is negative. Exam - Vital Signs Reviewed Vital Signs: Yes Vital Signs: Vital Signs x48h Temp Pulse Pulse Resp BP BP Pulse Ox 03/07/18 21:34 36.9 C 107 H 16 144/86 H 98 03/07/18 21:12 88 18 146/96 H 96 - Physical Exam General Appearance: positive: No acute distress, Alert Eyes Bilateral: positive: Normal inspection, PERRL, EOMI, No lid inflammation, Conjunctivae nml, No scleral icterus ENT: positive: ENT inspection nml, Pharynx nml, No signs of dehydration. negative: Purulent nasal drainage, Pharyngeal erythema, Oral lesions Neck: positive: Nml inspection, Thyroid nml, No JVD, Trachea midline. negative : Thyromegaly, Lymphadenopathy (R), Lymphadenopathy (L), Stiff neck, Carotid bruit, Tracheal deviation Respiratory: positive: Chest non-tender, No respiratory distress, Breath sounds nml. negative: Wheezes, Rales, Rhonchi Cardiovascular: positive: No murmur, No gallop, Irregularly irregular Peripheral Pulses: positive: 2+ Abdomen: positive: Non-tender, No organomegaly, Nml bowel sounds, No distention. negative: Guarding, Rebound, Hepatomegaly Back: positive: Nml inspection. negative: CVA tenderness (R), CVA tenderness (L ) Skin: positive: Color nml, No rash, Warm. negative: Cyanosis, Diaphoresis, Pallor, Skin rash Extremities: positive: Non-tender, Full ROM, Nml appearance, No pedal edema Neurologic/Psychiatric: positive: Oriented x3, CN's nml (2-12), Motor nml, Sensation nml, Mood/affect nml Conclusion/Plan - Problem List (1) Right arm weakness Conclusion/Plan: Patient presented with right arm weakness which occurred yesterday but had completely resolved on presentation. Patient had had several transient neurologic symptoms. The patient had diplopia 2 days ago and then noted some right arm pain in the same arm that was weak yesterday. All the symptoms had resolved on presentation to the emergency department. The patient does have history of atrial fibrillation and has recently had an aortic valve replacement and had a type a dissection of his aorta status post graft. The patient did have a therapeutic INR of 3.3. The patient is on aspirin and Lipitor. Patient was placed in observation for neuro checks, CT angiogram of the head and neck and MRI. He will also undergo a echocardiogram Plan: Neurochecks Echocardiogram CT angios head and neck MRI Continue aspirin Increase Lipitor to 80 mg Continue Coumadin (2) Atrial fibrillation Conclusion/Plan: Patient has history of atrial fibrillation and is on Coumadin for anticoagulation as well as amiodarone for rhythm control and metoprolol for rate control. Patient does appear to be in atrial flutter on EKG but rate is controlled. Plan: Continue Coumadin Monitor INR Continue amiodarone and metoprolol. Qualifiers: Atrial fibrillation type: chronic Qualified Code(s): I48.2 - Chronic atrial fibrillation - Lab Results Lab results reviewed: Yes Fish Bones: 03/07/18 16:55 03/07/18 16:55 Other Lab Results: Laboratory Results WBC 6.3 x10^3/uL (4.8-10.8) 03/07/18 16:55 RBC 5.04 10^6/uL (4.70-6.10) 03/07/18 16:55 Hgb 14.3 g/dL (14.0-18.0) 03/07/18 16:55 Hct 44.4 % (42.0-52.0) 03/07/18 16:55 MCV 88.1 fL (80.0-94.0) 03/07/18 16:55 MCH 28.4 pg (27.0-31.0) 03/07/18 16:55 MCHC 32.3 g/dL (32.0-36.0) 03/07/18 16:55 RDW 14.7 % (12.0-15.0) 03/07/18 16:55 Plt Count 272 10^3/uL (130-450) 03/07/18 16:55 MPV 8.2 fL (7.4-11.4) 03/07/18 16:55 Neut # 4.3 10^3/uL (1.5-6.6) 03/07/18 16:55 Lymph # 0.9 10^3/uL (1.5-3.5) L 03/07/18 16:55 [place] # 0.7 10^3/uL (0.0-1.0) 03/07/18 16:55 Eos # 0.4 10^3/uL (0.0-0.7) 03/07/18 16:55 Baso # 0.1 10^3/uL (0.0-0.1) 03/07/18 16:55 Absolute Nucleated RBC 0.00 x10^3/uL 03/07/18 16:55 Nucleated RBC % 0.0 /100WBC 03/07/18 16:55 PT 36.1 secs (9.9-12.6) H 03/07/18 16:55 INR 3.3 (0.8-1.2) H 03/07/18 16:55 Sodium 136 mmol/L (135-145) 03/07/18 16:55 Potassium 4.0 mmol/L (3.5-5.0) 03/07/18 16:55 Chloride 104 mmol/L (101-111) 03/07/18 16:55 Carbon Dioxide 25 mmol/L (21-32) 03/07/18 16:55 Anion Gap 7.0 (6-13) 03/07/18 16:55 BUN 20 mg/dL (6-20) 03/07/18 16:55 Creatinine 1.2 mg/dL (0.6-1.2) 03/07/18 16:55 Estimated GFR (MDRD) 62 (>89) L 03/07/18 16:55 Glucose 96 mg/dL (70-100) 03/07/18 16:55 Calcium 9.3 mg/dL (8.5-10.3) 03/07/18 16:55 Magnesium 2.3 mg/dL (1.7-2.8) 03/07/18 16:55 Total Bilirubin 0.5 mg/dL (0.2-1.0) 03/07/18 16:55 AST 21 IU/L (10-42) 03/07/18 16:55 ALT 25 IU/L (10-60) 03/07/18 16:55 Alkaline Phosphatase 78 IU/L (42-121) 03/07/18 16:55 Total Protein 7.4 g/dL (6.7-8.2) 03/07/18 16:55 Albumin 4.4 g/dL (3.2-5.5) 03/07/18 16:55 Globulin 3.0 g/dL (2.1-4.2) 03/07/18 16:55 Albumin/Globulin Ratio 1.5 (1.0-2.2) 03/07/18 16:55 Lipase 31 U/L (22-51) 03/07/18 16:55 - Diagnostic Imaging Results Diagnostic Imaging Results: positive: Final report reviewed Diagnostic Imaging Results Comments: EXAM: CT/HEADWO ([id number]) EXAM: CT HEAD EXAM DATE: 03/07/2018 06:57 PM. CLINICAL HISTORY: Diplopia transient and then right arm weak , transient. COMPARISON: None. TECHNIQUE: Multiaxial CT images were obtained from the foramen magnum to the vertex. Reformats: Coronal. IV contrast: None. In accordance with CT protocol optimization, one or more of the following dose reduction techniques were utilized for this exam: automated exposure control, adjustment of mA and/or KV based on patient size, or use of iterative reconstructive technique. FINDINGS: Parenchyma: No intraparenchymal hemorrhage. No evidence of mass, midline shift, or CT findings of infarction. Sifuentes-white differentiation is distinct. Extraaxial Spaces: Normal for age. No subdural or epidural collections. Ventricles: Normal in size and position. Sinuses and Orbits: Minimal mucosal thickening in ethmoid and maxillary sinuses. Small air-fluid levels and sphenoid sinus. Bones: Unremarkable. Other: None. IMPRESSION: Mild evidence of sinusitis. Otherwise normal head CT scan. EXAM: [id number] CT/NECKANG ([id number]) EXAM: CT ANGIOGRAM NECK EXAM DATE: 03/07/2018 09:43 PM. CLINICAL HISTORY: Possible TIA with right arm weakness. COMPARISON: None. TECHNIQUE: Routine axial helical imaging was performed from the skull base through the aortic arch. Reconstructions: Routine multiplanar 3D MIP reconstructions. IV Contrast: Yes. Evaluation of arterial stenosis is based on a NASCET method of measurement. In accordance with CT protocol optimization, one or more of the following dose reduction techniques were utilized for this exam: automated exposure control, adjustment of mA and/or KV based on patient size, or use of iterative reconstructive technique. FINDINGS: Contrast refluxes into veins of left neck. Artifact from motion and dense venous contrast obscures cervical vessels. Right Carotid: Proximal right CCA is obscured by venous contrast. CCA otherwise normal in caliber. There is tortuosity of the mid cervical ICA. No significant stenosis.. ICA otherwise normal in course. Left Carotid: Approximately half of CCA course obscured by venous contrast. Visualized components normal in caliber. There is beaded appearance of mid left cervical ICA. There are bands of mild narrowing (less than 20%). Vertebrals: Left vertebral artery is obscured to the C1 level. Distal left vertebral normal in caliber. Proximal right vertebral artery is not visualized. Right vertebral is visualized abdomen above the C5 level and is normal in caliber. Intracranial Circulation: Normal. No stenoses or aneurysms of the visualized vessels. Other: The bones, soft tissues, and lung apices are within normal limits. IMPRESSION: 1. 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 2. No right internal carotid artery stenosis. 3. Venous contrast obscures portions of both common carotid and both vertebral arteries as above. EXAM: [id number] CT/HEADANG ([id number]) EXAM: CT ANGIOGRAM HEAD. CT SCAN OF THE HEAD WITHOUT AND WITH CONTRAST. EXAM DATE: 03/07/2018 09:42 PM CLINICAL HISTORY: Possible TIA w right arm weakness. COMPARISON: Head CT 03/07/2018. TECHNIQUE: - CT Scan Head: Using a multidetector scanner, axial images were acquired from the foramen magnum to the skull vertex prior to and following contrast administration. - CT Angiogram: Using a multidetector scanner, high-resolution axial images were acquired from the skull base through vertex following rapid infusion of intravenous contrast. Reformats: Multiplanar MIP reformats were reconstructed. Nascet criteria used for stenosis measurement. IV Contrast: Yes. In accordance with CT protocol optimization, one or more of the following dose reduction techniques were utilized for this exam: automated exposure control, adjustment of mA and/or KV based on patient size, or use of iterative reconstructive technique. FINDINGS: NON-CONTRAST HEAD: Parenchyma: No intraparenchymal hemorrhage. No evidence of mass, midline shift, or CT findings of infarction. Sifuentes-white differentiation is distinct. Extraaxial Spaces: Normal for age. No subdural or epidural collections identified. Ventricles: Normal in size and position. Sinuses and orbits: Mild paranasal sinus mucosal thickening. No sinus fluid levels. Bones: No evidence of fracture or calvarial defect. Other: None. POST-CONTRAST HEAD: No abnormal enhancement. CT ANGIOGRAM HEAD: RIGHT: Internal Carotid artery: No evidence of dissection. No evidence of aneurysm along the intracranial ICA. Anterior Cerebral Artery: Patent without significant stenosis, aneurysm, or vascular malformation. Middle Cerebral Artery: Patent without significant stenosis, aneurysm, or vascular malformation. Posterior Cerebral Artery: Patent without significant stenosis, aneurysm, or vascular malformation. Posterior Communicating Artery: Incompletely visualized. Vertebral Artery: Patent without significant stenosis. No evidence of dissection. LEFT: Internal Carotid artery: Irregularity and mild narrowing of supraclinoid left ICA. Anterior Cerebral Artery: Patent without significant stenosis, aneurysm, or vascular malformation. Middle Cerebral Artery: Patent without significant stenosis, aneurysm, or vascular malformation. Posterior Cerebral Artery: Patent without significant stenosis, aneurysm, or vascular malformation. Posterior Communicating Artery: Not visualized. Vertebral Artery: Patent without significant stenosis. No evidence of dissection. CENTRAL: Anterior Communicating Artery: Patent. No aneurysm. Basilar Artery: Patent without significant stenosis. No aneurysm. DURAL VENOUS SINUSES AND MAJOR CENTRAL VEINS: Patent. IMPRESSION: CT Head: Normal head CT. No abnormal enhancement. CTA Head: Mild narrowing of supraclinoid left ICA. Otherwise unremarkable. - EKG Results EKG Interpreted Independently: Yes EKG Findings: Atrial flutter Core Measures - Anticipated LOS I expect patient to be DC'd or transferred within 96 hours.: Yes - DVT/VTE - Prophylaxis VTE/DVT Device ordered at admit?: Yes
[2018-03-07] MEDS: SODIUM CHLORIDE FLUSH 0.9% 10 ML SYRINGE IVP SCH (22:45)
--- NOTE | 2018-03-07 23:21 | CT Report ---
EXAM: CT ANGIOGRAM HEAD. CT SCAN OF THE HEAD WITHOUT AND WITH CONTRAST. EXAM DATE: 03/07/2018 09:42 PM CLINICAL HISTORY: Possible TIA w right arm weakness. COMPARISON: Head CT 03/07/2018. TECHNIQUE: - CT Scan Head: Using a multidetector scanner, axial images were acquired from the foramen magnum to the skull vertex prior to and following contrast administration. - CT Angiogram: Using a multidetector scanner, high-resolution axial images were acquired from the sk ull base through vertex following rapid infusion of intravenous contrast. Reformats: Multiplanar MIP reformats were reconstructed. Nascet criteria used for stenosis measurement. IV Contrast: Yes. In accordance with CT protocol optimization, one or more of the following dose reduction techniques w ere utilized for this exam: automated exposure control, adjustment of mA and/or KV based on patient s ize, or use of iterative reconstructive technique. FINDINGS: NON-CONTRAST HEAD: Parenchyma: No intraparenchymal hemorrhage. No evidence of mass, midline shift, or CT findings of inf arction. Sifuentes-white differentiation is distinct. Extraaxial Spaces: Normal for age. No subdural or epidural collections identified. Ventricles: Normal in size and position. Sinuses and orbits: Mild paranasal sinus mucosal thickening. No sinus fluid levels. Bones: No evidence of fracture or calvarial defect. Other: None. POST-CONTRAST HEAD: No abnormal enhancement. CT ANGIOGRAM HEAD: RIGHT: Internal Carotid artery: No evidence of dissection. No evidence of aneurysm along the intracranial IC A. Anterior Cerebral Artery: Patent without significant stenosis, aneurysm, or vascular malformation. Middle Cerebral Artery: Patent without significant stenosis, aneurysm, or vascular malformation. Posterior Cerebral Artery: Patent without significant stenosis, aneurysm, or vascular malformation. Posterior Communicating Artery: Incompletely visualized. Vertebral Artery: Patent without significant stenosis. No evidence of dissection. LEFT: Internal Carotid artery: Irregularity and mild narrowing of supraclinoid left ICA. Anterior Cerebral Artery: Patent without significant stenosis, aneurysm, or vascular malformation. Middle Cerebral Artery: Patent without significant stenosis, aneurysm, or vascular malformation. Posterior Cerebral Artery: Patent without significant stenosis, aneurysm, or vascular malformation. Posterior Communicating Artery: Not visualized. Vertebral Artery: Patent without significant stenosis. No evidence of dissection. CENTRAL: Anterior Communicating Artery: Patent. No aneurysm. Basilar Artery: Patent without significant stenosis. No aneurysm. DURAL VENOUS SINUSES AND MAJOR CENTRAL VEINS: Patent. IMPRESSION: CT Head: Normal head CT. No abnormal enhancement. CTA Head: Mild narrowing of supraclinoid left ICA. Otherwise unremarkable. [facility] Referring Provider Line: [phone] SITE ID: [id number]
--- NOTE | 2018-03-07 23:21 | CT Preliminary Report ---
Exam: CT HEAD ANGIO IMPRESSION: CT Head: Normal head CT. No abnormal enhancement. CTA Head: Mild narrowing of supraclinoid left ICA. Otherwise unremarkable. [facility] SITE ID: [id number]
--- NOTE | 2018-03-07 23:31 | CT Preliminary Report ---
Exam: CT NECK ANGIO IMPRESSION: 1. 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 2. No right internal carotid artery stenosis. 3. Venous contrast obscures portions of both common carotid and both vertebral arteries as above. [facility] SITE ID: [id number]
--- NOTE | 2018-03-07 23:32 | CT Report ---
EXAM: CT ANGIOGRAM NECK EXAM DATE: 03/07/2018 09:43 PM. CLINICAL HISTORY: Possible TIA with right arm weakness. COMPARISON: None. TECHNIQUE: Routine axial helical imaging was performed from the skull base through the aortic arch. R econstructions: Routine multiplanar 3D MIP reconstructions. IV Contrast: Yes. Evaluation of arterial stenosis is based on a NASCET method of measurement. In accordance with CT protocol optimization, one or more of the following dose reduction techniques w ere utilized for this exam: automated exposure control, adjustment of mA and/or KV based on patient s ize, or use of iterative reconstructive technique. FINDINGS: Contrast refluxes into veins of left neck. Artifact from motion and dense venous contrast o bscures cervical vessels. Right Carotid: Proximal right CCA is obscured by venous contrast. CCA otherwise normal in caliber. Th ere is tortuosity of the mid cervical ICA. No significant stenosis.. ICA otherwise normal in course. Left Carotid: Approximately half of CCA course obscured by venous contrast. Visualized components nor mal in caliber. There is beaded appearance of mid left cervical ICA. There are bands of mild narrowin g (less than 20%). Vertebrals: Left vertebral artery is obscured to the C1 level. Distal left vertebral normal in calibe r. Proximal right vertebral artery is not visualized. Right vertebral is visualized abdomen above the C5 level and is normal in caliber. Intracranial Circulation: Normal. No stenoses or aneurysms of the visualized vessels. Other: The bones, soft tissues, and lung apices are within normal limits. IMPRESSION: 1. 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 2. No right internal carotid artery stenosis. 3. Venous contrast obscures portions of both common carotid and both vertebral arteries as above. [facility] Referring Provider Line: [phone] SITE ID: [id number]
[2018-03-08] MEDS: ACETAMINOPHEN 325 MG TABLET PO PRN ×2 (00:31→09:28)
[2018-03-08 05:11] LABS: BASOPHILS # (AUTO) 0.1 10^3/uL (0.0-0.1); BASOPHILS % (AUTO) 1.2 %; EOSINOPHILS # (AUTO) 0.4 10^3/uL (0.0-0.7); EOSINOPHILS % (AUTO) 5.6 %; HGB - HEMOGLOBIN 14.2 g/dL (14.0-18.0); LYMPHOCYTES # (AUTO) 1.1 10^3/uL (1.5-3.5); LYMPHOCYTES % (AUTO) 16.1 %; MEAN CORPUSCULAR HEMOGLOBIN 28.6 pg (27.0-31.0); MEAN CORPUSCULAR HGB CONC 32.8 g/dL (32.0-36.0); MEAN CORPUSCULAR VOLUME 87.3 fL (80.0-94.0); MEAN PLATELET VOLUME 8.1 fL (7.4-11.4); MONOCYTES # (AUTO) 0.8 10^3/uL (0.0-1.0); NEUTROPHILS # (AUTO) 4.7 10^3/uL (1.5-6.6); NEUTROPHILS % (AUTO) 66.1 %; PLT - PLATELET COUNT 249 10^3/uL (130-450); RED BLOOD COUNT 4.96 10^6/uL (4.70-6.10); RED CELL DISTRIBUTION WIDTH 14.5 % (12.0-15.0); WHITE BLOOD COUNT 7.2 x10^3/uL (4.8-10.8)
[2018-03-08 05:17] LABS: PT - PROTHROMBIN TIME 32.9 secs (9.9-12.6)
[2018-03-08 05:24] LABS: ALBUMIN 3.7 g/dL (3.2-5.5); ALBUMIN/GLOBULIN RATIO 1.4 (1.0-2.2); BILIRUBIN,TOTAL 0.8 mg/dL (0.2-1.0); CALCIUM 8.9 mg/dL (8.5-10.3); CREATININE 1.3 mg/dL (0.6-1.2); TOTAL PROTEIN 6.3 g/dL (6.7-8.2)
[2018-03-08] MEDS ORDERED: ASPIRIN 325 MG TABLET PO SCH (08:00)
[2018-03-08] MEDS ORDERED: METOPROLOL TARTRATE 25 MG TABLET PO SCH (09:00)
[2018-03-08] MEDS ORDERED: FAMOTIDINE 20 MG TABLET PO SCH (09:00)
[2018-03-08] MEDS ORDERED: AMIODARONE 200 MG TABLET PO SCH (09:00)
[2018-03-08] MEDS ORDERED: POLYETHYLENE GLYCOL 3350 17 GM PACKET PO SCH (09:00)
[2018-03-08] MEDS: SODIUM CHLORIDE FLUSH 0.9% 10 ML SYRINGE IVP SCH (09:29)
--- NOTE | 2018-03-08 09:44 | MRI Preliminary Report ---
Exam: MRI BRAIN W/O Impression: 1. A mild amount of right lower disease is identified in the supratentorial brain. The findings are r elatively nonspecific, however, this most likely represents chronic microangiopathy. If there are no risk factors for small vessel disease (i. E. Hypertension diabetes etc. Closing. Consider other white matter pathologies, including a demyelinating process. 2. Small foci of encephalomalacia are seen in the posterior left cerebellum, consistent with the sequ chelsi remote, embolic type ischemic infarctions. 3. Small focus of hypointensity subcortical white matter, left middle frontal gyrus as described. Thi s may represent hemosiderin from prior microhemorrhage. Main differential diagnostic considerations f or microhemorrhage in a patient of this age are trauma versus chronic hypertension. 4. No other significant intracranial findings on this unenhanced brain MRI. In particular, no evidenc e of recent lacunar or cortical infarction. 5. Air-fluid levels are demonstrated in the sphenoid sinus. In the appropriate clinical setting this certainly could represent active sphenoid sinusitis. SITE ID: [id number]
--- NOTE | 2018-03-08 10:51 | Discharge Plan ---
Discharge Plan Disposition: 01 Home, Self Care Condition: Stable Diet: Regular Activity Restrictions: No Restrictions Shower Restrictions: No Driving Restrictions: No Weight Bearing: Full Weight Additional Instructions or Follow Up instructions: You should follow up with a neurologist in the next week. [facility] is one close facilty that has extensive neurological services. No Smoking: If you smoke, Please STOP! Call for help. Follow-up with: Gadiel Arriaga MD [Primary Care Provider] -
--- NOTE | 2018-03-08 11:33 | DISCHARGE SUMMARY ---
Discharge Summary Admit Date: 03/07/18 Discharge Date: 03/08/18 Discharging Provider: Zainab Rosas Primary Care Provider: Gadiel Arriaga Code Status: Attempt Resuscitation Condition at Discharge: Good Discharge Disposition: 01 Home, Self Care - DIAGNOSES Admission Diagnoses: 1) Right arm weakness 2) Atrial fibrillation Discharge Diagnoses with Status of Each Condition: 1) Right arm weakness- resolved spontaneously. No acute events noted on CT brain , CTA neck and brain, or MRI. Chronic changes noted on MRI, discussed at great length with patient and spouse who verbalize understanding. The patient will follow up with a neurologist following discharge receiving referral from Dr. Arriaga. 2) Atrial fibrillation- Patient is currently adequately anticoagulated and showing a rate controlled atrial fibrillation flutter. Continue present care. - HPI History of Present Illness: From Dr. Park's history and physical: Patient is a 57-year-old gentleman with a past medical history significant for a type a aortic dissection and a bicuspid aortic valve status post aortic graft and aortic valve replacement in December 2017 with postop complication of atrial fibrillation who presents to the emergency department with a chief complaint of right arm weakness. The patient states that he was in his normal state of health until about 2 days ago when he states that he was sitting and began to experience diplopia. He describes double vision that lasted for about 3-4 minutes after which he felt lightheaded for about 5 minutes but then symptoms completely resolved. He states that that morning he had drank 2 cups of coffee and had had very little to drink otherwise. The patient states that the following day while he was cutting up a cantaloupe he began to notice that his right arm became very weak. 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 He states that this lasted for about 5 minutes before it completely resolved. He states that today he was lying down to rest when he began having pain in his right arm. He states that his right arm has never hurt like this before. He states the pain was a dull aching pain and lasted for about 15 minutes but then completely resolved. Once he told his what had been happening his asked him to go to the emergency department. Initially the patient was reluctant but finally agreed to come in. Patient denies any fevers, chills, headache, blurred vision, runny nose, sore throat, nasal congestion, difficulty swallowing, chest pain, shortness of air, orthopnea, PND, increased lower extremity swelling, abdominal pain, nausea, vomiting, diarrhea, constipation, urinary urgency, urinary frequency, dysuria, joint pain, joint swelling, muscle aches, back pain, neck stiffness, rash, skin changes or hair loss. On presentation to the emergency department the patient was afebrile he was slightly tachycardic and hypertensive but otherwise was not in any respiratory distress and saturating well on room air. The patient's lab work was within normal limits. The patient's INR was 3.3 as he is on Coumadin for his atrial fibrillation. The patient had no deficits on his neurologic examination. The patient did undergo a CT of his head in the emergency department which revealed mild evidence of sinusitis but otherwise was normal. The patient's EKG showed that the patient was in atrial flutter with no acute ischemic changes. Given the patient's nonspecific symptoms and history of atrial fibrillation emergency room physician was concerned about the possibility of a stroke or other neurologic condition such as MS and asked if we could observe the patient for neuro checks and an MRI as well as CT angiogram of the head and neck. - HOSPITAL COURSE Hospital Course: The patient was admitted to an observation bed on telemetry and his vital signs and EKG were closely monitored. His symptoms resolved spontaneously over the next several hours, and he has not had any new complaints. CAT scan of the brain, CT angiogram of the head and neck, and MRI of the brain were performed with the noted findings. - ALLERGIES Allergies/Adverse Reactions: Allergies Allergy/AdvReac Type Severity Reaction Status Date / Time tolmetin Allergy Severe Edema Verified 03/07/18 16:29 - MEDICATIONS Home Medications: Ambulatory Orders Medication Instructions Recorded Confirmed Warfarin [Coumadin] 1.5 mg PO 1700 03/07/18 03/08/18 Amiodarone [Pacerone] 200 mg PO DAILY 03/08/18 03/08/18 Aspirin [Aspirin EC] 81 mg PO DAILYWM 03/08/18 03/08/18 Atorvastatin Calcium 20 mg PO QPM 03/08/18 03/08/18 Metoprolol Succinate [Toprol Xl] 50 mg PO BID 03/08/18 03/08/18 - PHYSICAL EXAM AT DISCHARGE General Appearance: positive: No acute distress, Alert Eyes Bilateral: positive: Normal inspection, PERRL, EOMI, No lid inflammation, Conjunctivae nml, No scleral icterus ENT: positive: ENT inspection nml, Pharynx nml, No signs of dehydration Neck: positive: Nml inspection, Thyroid nml, No JVD, Trachea midline, Thyromegaly Respiratory: positive: Chest non-tender, No respiratory distress, Breath sounds nml. negative: Wheezes, Rales, Rhonchi Cardiovascular: positive: Regular rate & rhythm, No murmur, No gallop Peripheral Pulses: positive: 1+ Abdomen: positive: Non-tender, No organomegaly, Nml bowel sounds, No distention. negative: Guarding, Rebound Back: positive: Nml inspection. negative: CVA tenderness (R), CVA tenderness (L ) Skin: positive: Color nml, No rash, Warm, Dry. negative: Cyanosis Extremities: positive: Non-tender, Full ROM, Nml appearance, No pedal edema Neurologic/Psychiatric: positive: Oriented x3, CN's nml (2-12), Motor nml, Sensation nml, Mood/affect nml - LABS Result Diagrams: 03/08/18 04:53 03/08/18 04:53 - DIAGNOSTIC IMAGING Diagnostic Imaging Results: Final report reviewed Diagnostic Imaging Results Comments: EXAM: CT HEAD EXAM DATE: 03/07/2018 06:57 PM. CLINICAL HISTORY: Diplopia transient and then right arm weak , transient. COMPARISON: None. TECHNIQUE: Multiaxial CT images were obtained from the foramen magnum to the vertex. Reformats: Coronal. IV contrast: None. In accordance with CT protocol optimization, one or more of the following dose reduction techniques were utilized for this exam: automated exposure control, adjustment of mA and/or KV based on patient size, or use of iterative reconstructive technique. FINDINGS: Parenchyma: No intraparenchymal hemorrhage. No evidence of mass, midline shift, or CT findings of infarction. Sifuentes-white differentiation is distinct. Extraaxial Spaces: Normal for age. No subdural or epidural collections. Ventricles: Normal in size and position. Sinuses and Orbits: Minimal mucosal thickening in ethmoid and maxillary sinuses. Small air-fluid levels and sphenoid sinus. Bones: Unremarkable. Other: None. IMPRESSION: Mild evidence of sinusitis. Otherwise normal head CT scan. EXAM: CT ANGIOGRAM NECK EXAM DATE: 03/07/2018 09:43 PM. CLINICAL HISTORY: Possible TIA with right arm weakness. COMPARISON: None. TECHNIQUE: Routine axial helical imaging was performed from the skull base through the aortic arch. Reconstructions: Routine multiplanar 3D MIP reconstructions. IV Contrast: Yes. Evaluation of arterial stenosis is based on a NASCET method of measurement. In accordance with CT protocol optimization, one or more of the following dose reduction techniques were utilized for this exam: automated exposure control, adjustment of mA and/or KV based on patient size, or use of iterative reconstructive technique. FINDINGS: Contrast refluxes into veins of left neck. Artifact from motion and dense venous contrast obscures cervical vessels. Right Carotid: Proximal right CCA is obscured by venous contrast. CCA otherwise normal in caliber. There is tortuosity of the mid cervical ICA. No significant stenosis.. ICA otherwise normal in course. Left Carotid: Approximately half of CCA course obscured by venous contrast. Visualized components normal in caliber. There is beaded appearance of mid left cervical ICA. There are bands of mild narrowing (less than 20%). Vertebrals: Left vertebral artery is obscured to the C1 level. Distal left vertebral normal in caliber. Proximal right vertebral artery is not visualized. Right vertebral is visualized abdomen above the C5 level and is normal in caliber. Intracranial Circulation: Normal. No stenoses or aneurysms of the visualized vessels. Other: The bones, soft tissues, and lung apices are within normal limits. IMPRESSION: 1. 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 2. No right internal carotid artery stenosis. 3. Venous contrast obscures portions of both common carotid and both vertebral arteries as above. EXAM: CT ANGIOGRAM HEAD. CT SCAN OF THE HEAD WITHOUT AND WITH CONTRAST. EXAM DATE: 03/07/2018 09:42 PM CLINICAL HISTORY: Possible TIA w right arm weakness. COMPARISON: Head CT 03/07/2018. TECHNIQUE: - CT Scan Head: Using a multidetector scanner, axial images were acquired from the foramen magnum to the skull vertex prior to and following contrast administration. - CT Angiogram: Using a multidetector scanner, high-resolution axial images were acquired from the skull base through vertex following rapid infusion of intravenous contrast. Reformats: Multiplanar MIP reformats were reconstructed. Nascet criteria used for stenosis measurement. IV Contrast: Yes. In accordance with CT protocol optimization, one or more of the following dose reduction techniques were utilized for this exam: automated exposure control, adjustment of mA and/or KV based on patient size, or use of iterative reconstructive technique. FINDINGS: NON-CONTRAST HEAD: Parenchyma: No intraparenchymal hemorrhage. No evidence of mass, midline shift, or CT findings of infarction. Sifuentes-white differentiation is distinct. Extraaxial Spaces: Normal for age. No subdural or epidural collections identified. Ventricles: Normal in size and position. Sinuses and orbits: Mild paranasal sinus mucosal thickening. No sinus fluid levels. Bones: No evidence of fracture or calvarial defect. Other: None. POST-CONTRAST HEAD: No abnormal enhancement. CT ANGIOGRAM HEAD: RIGHT: Internal Carotid artery: No evidence of dissection. No evidence of aneurysm along the intracranial ICA. Anterior Cerebral Artery: Patent without significant stenosis, aneurysm, or vascular malformation. Middle Cerebral Artery: Patent without significant stenosis, aneurysm, or vascular malformation. Posterior Cerebral Artery: Patent without significant stenosis, aneurysm, or vascular malformation. Posterior Communicating Artery: Incompletely visualized. Vertebral Artery: Patent without significant stenosis. No evidence of dissection. LEFT: Internal Carotid artery: Irregularity and mild narrowing of supraclinoid left ICA. Anterior Cerebral Artery: Patent without significant stenosis, aneurysm, or vascular malformation. Middle Cerebral Artery: Patent without significant stenosis, aneurysm, or vascular malformation. Posterior Cerebral Artery: Patent without significant stenosis, aneurysm, or vascular malformation. Posterior Communicating Artery: Not visualized. Vertebral Artery: Patent without significant stenosis. No evidence of dissection. CENTRAL: Anterior Communicating Artery: Patent. No aneurysm. Basilar Artery: Patent without significant stenosis. No aneurysm. DURAL VENOUS SINUSES AND MAJOR CENTRAL VEINS: Patent. IMPRESSION: CT Head: Normal head CT. No abnormal enhancement. CTA Head: Mild narrowing of supraclinoid left ICA. Otherwise unremarkable. - FOLLOW UP Follow Up: Follow-up with Dr. Arriaga and a neurologist this week. - TIME SPENT Time Spent in Discharge (Minutes): 40
[2018-03-08 11:41] VITALS: BP 133/79
--- NOTE | 2018-03-08 12:27 | MRI Report ---
MRI BRAIN WITHOUT CONTRAST EXAM DATE: 03/08/2018. INDICATION: 57-year-old male with transient right arm weakness. Concern for possible CVA/TIA. Please assess. COMPARISON: Head CT 03/07/2018. TECHNIQUE: 1. T1 sagittal and fat-saturated T2 coronal. 2. Axial T1 MPRAGE, FLAIR, T2, T2* and DWI. FINDINGS: Ventricular size is normal. A mild amount of white matter disease is identified in the supratentorial brain, manifested as focal and confluent T2 hyperintensities that are scattered throughout the periventricular, deep and subcort ical white matter bilaterally. A frontoparietal distribution predominates. There is at least one partha callosal T2 hyperintensity (see image 14 of series 901). However, no true juxtacortical lesion is dem onstrated. In addition, no pathology is seen in the corpus callosum, brainstem or cerebellar peduncle s. Small foci of encephalomalacia are seen in the posterior left cerebellum, consistent with the sequela of remote, minor, embolic type ischemic infarctions. There appear to be flow voids for the main intracranial arteries. No abnormal diffusion restriction i s demonstrated. On the T2* GRE sequence, noted is a roughly 3 x 1.5 mm hypointense focus in subcortical white matter deep to the left middle frontal gyrus (see image 21 of series 801). This may represent artifact; [place], this certainly could represent hemosiderin from remote microhemorrhage. No other potential acute or chronic hemorrhage is identified on the T2* GRE sequence. No abnormal extra-axial fluid collectio n. No mass effect or midline shift. Limited assessment of the orbits reveals no gross pathology. Mucosal thickening is identified, scatte red throughout the paranasal sinuses. A few mucous retention cysts are demonstrated in the maxillary sinuses. No air-fluid level is identified. However, air-fluid levels are seen in the posterior recess es of the right and left chambers of the sphenoid sinus. No mastoid or middle ear effusion. IMPRESSION: 1. A mild amount of white matter disease is identified in the supratentorial brain. The findings are relatively nonspecific; however, this most likely represents chronic microangiopathy. If there are no risk factors for small vessel disease (i.e., hypertension, diabetes, etc.), consider other white mat ter pathologies, including a demyelinating process. 2. Small foci of encephalomalacia are seen in the posterior left cerebellum, consistent with the sequ chelsi of remote, embolic type ischemic infarctions. 3. Small focus of hypointensity subcortical white matter, left middle frontal gyrus as described. Thi s may represent hemosiderin from prior microhemorrhage. Main differential diagnostic considerations f or microhemorrhage in a patient of this age are trauma versus chronic hypertension. 4. No other significant intracranial findings on this unenhanced brain MRI. In particular, no evidenc e of recent lacunar or cortical infarction. 5. Air-fluid levels are demonstrated in the sphenoid sinus. In the appropriate clinical setting this certainly could represent active sphenoid sinusitis. Referring Provider Line: [phone] SITE ID: [id number]
[2018-03-08] MEDS ORDERED: WARFARIN 1 MG TABLET PO SCH (14:00)
== END 2018-03-08 12:35 | disposition home or self-care (01) ==
LOC: ED 16:20 → OBS 20:45
PROVIDERS: ADMIT Internal Medicine; ATTEND Hospitalist
DX: R53.1 Weakness (principal); H53.2 Diplopia; M79.601 Pain in right arm; I48.2 Chronic atrial fibrillation; I48.92 Unspecified atrial flutter; Z95.2 Presence of prosthetic heart valve; Z79.01 Long term (current) use of anticoagulants; Z79.82 Long term (current) use of aspirin; Z95.5 Presence of coronary angioplasty implant and graft
CPT/HCPCS: 36415; 70450; 70496; 70498; 70551; 80053; 83690; 83735; 85025; 85610; 93005; 93306; 96360; 96361; 99218; 99284; A9270; Q9967

== ENCOUNTER 2018-03-14 08:24 | Outpatient (CLI) | payer OTHER | END 2018-03-14 08:25 | disposition home or self-care (01) | LOC: LAB 08:24 | PROVIDERS: ATTEND Internal Medicine Cardiovascular Disease | DX: Z95.2 Presence of prosthetic heart valve (principal) | CPT/HCPCS: 85610 ==

== ENCOUNTER 2018-03-23 08:41 | Outpatient (CLI) | payer OTHER | END 2018-03-23 08:42 | disposition home or self-care (01) | LOC: LAB 08:41 | PROVIDERS: ATTEND Internal Medicine Cardiovascular Disease | DX: Z95.2 Presence of prosthetic heart valve (principal) | CPT/HCPCS: 85610 ==

== ENCOUNTER 2018-03-30 08:14 | Outpatient (CLI) | payer OTHER | END 2018-03-30 08:15 | disposition home or self-care (01) | LOC: LAB 08:14 | PROVIDERS: ATTEND Internal Medicine Cardiovascular Disease | DX: Z95.2 Presence of prosthetic heart valve (principal) | CPT/HCPCS: 85610 ==

== ENCOUNTER 2018-04-06 08:38 | Outpatient (CLI) | payer OTHER | END 2018-04-06 08:39 | disposition home or self-care (01) | LOC: LAB 08:38 | PROVIDERS: ATTEND Internal Medicine Cardiovascular Disease | DX: Z95.2 Presence of prosthetic heart valve (principal) | CPT/HCPCS: 85610 ==

== ENCOUNTER 2018-04-21 10:56 | Outpatient (CLI) | payer OTHER | END 2018-04-21 10:57 | disposition home or self-care (01) | LOC: LAB 10:56 | PROVIDERS: ATTEND Internal Medicine Cardiovascular Disease | DX: Z95.2 Presence of prosthetic heart valve (principal) | CPT/HCPCS: 85610 ==

== ENCOUNTER 2018-05-25 18:43 | Outpatient (CLI) | payer OTHER ==
--- NOTE | 2018-05-26 14:14 | Ultrasound Report ---
Procedure Date: 05/25/2018 Accession Number: [id number] / [id number] Procedure: US - Carotid Doppler Complete CPT Code: FULL RESULT: EXAM: BILATERAL CAROTID AND VERTEBRAL ARTERY DUPLEX DOPPLER ULTRASOUND: EXAM DATE: 05/25/2018 07:30 PM CLINICAL HISTORY: Hollenhorst plaque. COMPARISON: Correlation with CTA neck 03/07/2018, chest CTA thoracic aorta 01/08/2018 and pulmonary arterial CTA 01/08/2018 with earlier contrast timing. No prior carotid Doppler ultrasound. TECHNIQUE: Grayscale imaging, color Doppler, and duplex spectral Doppler were used to evaluate the carotid and vertebral arteries bilaterally. Static images were obtained. FINDINGS: Despite normal-appearing bilateral common carotid arteries on 2-D flor scale and color Doppler imaging, color Doppler images of bilateral internal carotid arteries are abnormal with varying areas of red and blue color indicating different directions of Doppler flow. Please see image 36 regarding right internal carotid artery and image 62 regarding left internal carotid artery. Spectral Doppler waveform within Right ICA appears to dampen from image 30 to 31 with peak systolic velocity decreasing from 128 cm/s to 59 cm/s with development of parvus tardus waveform on image 31. On image 63, a spectral Doppler waveform was present within left ICA; however, there was very little color Doppler signal within the left ICA on same image. Normal spectral Doppler waveform on image 66 appears to dampen with parvus tardus waveforms on image 67-68. normal antegrade flow is present in bilateral vertebral arteries. VELOCITIES (cm/sec): Right: RCCA Prox: PSV 106 cm/sec. RCCA Dist: PSV 106 cm/sec, EDV 18.5 cm/sec. RECA: PSV 156.8 cm/sec. R Bulb: PSV 73.6 cm/sec, EDV 1.2 cm/sec, ICA/CCA ratio 0.7. NEL Prox: PSV 70.6 cm/sec, EDV 17.6 cm/sec, ICA/CCA ratio 0.7. NEL Mid: PSV 58 cm/sec, EDV 16.8 cm/sec, ICA/CCA ratio 0.5. NEL Dist: PSV 48.3 cm/sec, EDV 11.3 cm/sec, ICA/CCA ratio 0.5. RVA: PSV 40.8 cm/sec. RVA flow direction: Antegrade. Left: LCCA Prox: PSV 119 cm/sec. LCCA Dist: PSV 100.5 cm/sec, EDV 24.7 cm/sec. LECA: PSV 152 cm/sec. L Bulb: PSV 83.4 cm/sec, EDV 0.8 cm/sec, ICA/CCA ratio 0.8. LICA Prox: PSV 86.8 cm/sec, EDV 14 cm/sec, ICA/CCA ratio 0.9. LICA Mid: PSV 66.1 cm/sec, EDV 19.6 cm/sec, ICA/CCA ratio 0.7. LICA Dist: PSV 70.0 cm/sec, EDV 17.9 cm/sec, ICA/CCA ratio 0.7. LVA: PSV 42.6 cm/sec. LVA flow direction: Antegrade. IMPRESSION: 1. Peak systolic velocities within bilateral internal carotid arteries are within normal limits. However, color Doppler imaging demonstrates markedly abnormal signal with variable flow direction and absent color Doppler signal despite spectral Doppler waveforms within bilateral mid to distal internal carotid arteries. Review of ICA spectral Doppler images also demonstrates dampening with development of parvus tardus waveforms from proximal to mid internal carotid arteries. Common carotid arteries have normal Doppler flow and color Doppler appearance. No significant plaque demonstrated on CTA neck 03/07/2018. 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 Recommend repeat CTA neck to assess for bilateral internal carotid arterial dissection versus artifact. 2. Antegrade flow bilateral vertebral arteries. Exam discussed with Dr. Gadiel Arriaga on day of study at 2:05 PM. General Recommendations: Stenosis =50% ICA - Follow-up ultrasound 6-12 months Stenosis <50% ICA - High Risk Patient with plaque - Follow-up ultrasound 1-2 years Normal Study but High Risk Patient - Follow-up ultrasound 3-5 years Management recommendations and diagnostic criteria are based on current IAC endorsed standards in Carotid Artery Stenosis: Grayscale and Doppler Ultrasound Diagnosis. Validated velocity measurements with angiographic measurements and velocity criteria are extrapolated from diameter data as defined by the Society of Radiologists in Ultrasound Consensus Conference Radiology 2003; 229;340-346. RADIA
== END 2018-05-25 18:44 | disposition home or self-care (01) ==
LOC: DI 18:43
PROVIDERS: ATTEND Family Medicine
DX: H34.219 Partial retinal artery occlusion, unspecified eye (principal)
CPT/HCPCS: 93880

== ENCOUNTER 2018-05-27 12:27 | Outpatient (CLI) | payer OTHER ==
[2018-05-27] MEDS ORDERED: IOPAMIDOL-300 100 ML VIAL IVP ONE ×2 (12:28→15:33)
[2018-05-27 14:43] LABS: CALCIUM 9.3 mg/dL (8.5-10.3); CREATININE 1.2 mg/dL (0.6-1.2)
[2018-05-27] MEDS ORDERED: IOPAMIDOL-300 100 ML VIAL ONE (15:00)
--- NOTE | 2018-05-27 17:06 | CT Report ---
Procedure Date: 05/27/2018 Accession Number: [id number] / [id number] Procedure: CT - Neck Angio CPT Code: FULL RESULT: EXAM: CT ANGIOGRAM NECK EXAM DATE: 05/27/2018 03:27 PM. CLINICAL HISTORY: [place]ORST [place]. Known thoracic aortic arch Type A dissection. COMPARISON: Carotid ultrasound study 05/25/2018, prior MRI brain 03/08/2018. Prior CT angiogram chest 01/08/2018. TECHNIQUE: Routine axial helical imaging was performed from the skull base through the aortic arch. Reconstructions: Routine multiplanar 3D MIP reconstructions. IV Contrast: 80 ML ISOVUE 300. Evaluation of arterial stenosis is based on a NASCET method of measurement. In accordance with CT protocol optimization, one or more of the following dose reduction techniques were utilized for this exam: automated exposure control, adjustment of mA and/or KV based on patient size, or use of iterative reconstructive technique. Findings: Relevant images are indicated (image number, series number). Aortic arch: Partial visualization of previously described Type A arch dissection. The true lumen supplies the great vessels, but does not extend into the brachiocephalic, left common carotid, or left subclavian arteries. Left common carotid artery widely patent. Right common carotid artery: Widely patent. Left vertebral artery: Widely patent. Right vertebral artery: Widely patent. Limited evaluation intracranial contents unremarkable, the ventricles are not dilated. Dense opacification anterior ethmoidal, bifrontal sinuses. Orbital contents unremarkable. Mild mucosal thickening bilateral maxillary sinuses. Bilateral mastoid air cells clear. The cap[place] band of Lui appears grossly unremarkable. Patient status post cardiothoracic surgery with multiple overlying sternal wires. Impressions: 1. Aortic arch: Again seen Type A dissection, described previously on CT angiogram chest 01/08/2018. No extension into the great vessels. The true lumen supplies the great vessels. 2. Otherwise patent lateral carotid and vertebral arteries. No aneurysm, dissection, stenosis, or AVM. 3. Dense bifrontal, anterior ethmoidal sinus disease. 4. Grossly, capitan grande band Lui appears intact. 5. Postop cardiothoracic surgery. Findings were discussed immediately with Dr. Arriaga by phone on 05/27/2018 at 1704 hrs. [facility]ITAL[facility]gn[facility]
== END 2018-05-27 12:28 | disposition home or self-care (01) ==
LOC: DI 12:27
PROVIDERS: ATTEND Family Medicine
DX: H34.219 Partial retinal artery occlusion, unspecified eye (principal); I71.01 Dissection of thoracic aorta
CPT/HCPCS: 36415; 70498; 80048; Q9967; 82565

== ENCOUNTER 2018-09-26 08:28 | Outpatient (CLI) | payer OTHER ==
[2018-09-26 12:34] LABS: ALBUMIN/GLOBULIN RATIO 1.3 (1.0-2.2); ALKALINE PHOSPHATASE 69 IU/L (42-121); ALT ALANINE AMINOTRANSFERASE 23 IU/L (10-60); AST ASPARTATE AMINOTRANSFERASE 25 IU/L (10-42); BILIRUBIN,TOTAL 0.8 mg/dL (0.2-1.0); BUN - BLOOD UREA NITROGEN 20 mg/dL (6-20); CALCIUM 9.5 mg/dL (8.5-10.3); CARBON DIOXIDE - CO2 27 mmol/L (21-32); CHLORIDE 105 mmol/L (101-111); CHOL/HDL RATIO 3.7 (<5.0); CHOLESTEROL 156 mg/dL; CREATININE 1.1 mg/dL (0.6-1.2); GFR - MDRD 69 (>89); GLUCOSE 94 mg/dL (70-100); HDL CHOLESTEROL 42 mg/dL; LDL CHOLESTEROL,CALCULATED 98 mg/dL; LDL/HDL RATIO 2.3 (<3.6); SODIUM 139 mmol/L (135-145); TOTAL PROTEIN 7.1 g/dL (6.7-8.2); VLDL CHOLESTEROL 16 mg/dL
[2018-09-26 12:35] LABS: BASOPHILS # (AUTO) 0.1 10^3/uL (0.0-0.1); BASOPHILS % (AUTO) 1.1 %; EOSINOPHILS # (AUTO) 0.5 10^3/uL (0.0-0.7); EOSINOPHILS % (AUTO) 6.7 %; HGB - HEMOGLOBIN 16.4 g/dL (14.0-18.0); LYMPHOCYTES # (AUTO) 1.2 10^3/uL (1.5-3.5); LYMPHOCYTES % (AUTO) 17.4 %; MEAN CORPUSCULAR HEMOGLOBIN 30.9 pg (27.0-31.0); MEAN CORPUSCULAR VOLUME 90.7 fL (80.0-94.0); MEAN PLATELET VOLUME 8.8 fL (7.4-11.4); MONOCYTES # (AUTO) 0.7 10^3/uL (0.0-1.0); MONOCYTES % (AUTO) 10.5 %; NEUTROPHILS # (AUTO) 4.4 10^3/uL (1.5-6.6); NEUTROPHILS % (AUTO) 64.3 %; PLT - PLATELET COUNT 243 10^3/uL (130-450); RED BLOOD COUNT 5.32 10^6/uL (4.70-6.10); RED CELL DISTRIBUTION WIDTH 14.1 % (12.0-15.0); WHITE BLOOD COUNT 6.8 x10^3/uL (4.8-10.8)
== END 2018-09-26 08:29 | disposition home or self-care (01) ==
LOC: LAB.WCP 08:28
PROVIDERS: ATTEND Family Medicine
DX: G47.00 Insomnia, unspecified (principal); I73.00 Raynaud's syndrome without gangrene; I48.91 Unspecified atrial fibrillation; I38 Endocarditis, valve unspecified; I10 Essential (primary) hypertension; E78.5 Hyperlipidemia, unspecified; Z12.5 Encounter for screening for malignant neoplasm of prostate; R73.01 Impaired fasting glucose
CPT/HCPCS: 36415; 80053; 80061; 83721; 84153; 85025; 85651

== ENCOUNTER 2018-09-29 07:57 | Outpatient (CLI) | payer OTHER | END 2018-09-29 07:58 | disposition home or self-care (01) | LOC: LAB.WCP 07:57 | PROVIDERS: ATTEND Family Medicine | DX: R68.82 Decreased libido (principal) | CPT/HCPCS: 36415; 81599; 84402; 84403 ==

== ENCOUNTER 2018-11-16 12:07 | Outpatient (CLI) | payer OTHER | END 2018-11-16 12:08 | disposition home or self-care (01) | LOC: LAB 12:07 | PROVIDERS: ATTEND Internal Medicine Cardiovascular Disease | DX: Z95.2 Presence of prosthetic heart valve (principal) | CPT/HCPCS: 85610 ==

== ENCOUNTER 2019-04-07 08:00 | Outpatient (CLI) | payer OTHER ==
[2019-04-07 12:39] LABS: BASOPHILS # (AUTO) 0.1 10^3/uL (0.0-0.1); BASOPHILS % (AUTO) 2.1 %; EOSINOPHILS # (AUTO) 0.4 10^3/uL (0.0-0.7); HGB - HEMOGLOBIN 16.5 g/dL (14.0-18.0); LYMPHOCYTES # (AUTO) 1.1 10^3/uL (1.5-3.5); LYMPHOCYTES % (AUTO) 14.6 %; MEAN CORPUSCULAR HEMOGLOBIN 29.9 pg (27.0-31.0); MEAN CORPUSCULAR HGB CONC 32.9 g/dL (32.0-36.0); MEAN CORPUSCULAR VOLUME 90.9 fL (80.0-94.0); MONOCYTES # (AUTO) 0.7 10^3/uL (0.0-1.0); MONOCYTES % (AUTO) 10.3 %; NEUTROPHILS # (AUTO) 4.9 10^3/uL (1.5-6.6); PLT - PLATELET COUNT 269 10^3/uL (130-450); RED CELL DISTRIBUTION WIDTH 13.9 % (12.0-15.0); WHITE BLOOD COUNT 7.2 x10^3/uL (4.8-10.8)
[2019-04-07 12:48] LABS: ALBUMIN/GLOBULIN RATIO 1.4 (1.0-2.2); BILIRUBIN,TOTAL 0.9 mg/dL (0.2-1.0); CALCIUM 9.2 mg/dL (8.5-10.3); TOTAL PROTEIN 6.9 g/dL (6.7-8.2)
== END 2019-04-07 23:59 | disposition home or self-care (01) ==
LOC: LAB.WCP 08:00
PROVIDERS: ATTEND Family Medicine
DX: I10 Essential (primary) hypertension (principal)
CPT/HCPCS: 36415; 80053; 85025

== ENCOUNTER 2019-05-30 07:43 | Outpatient (CLI) | payer OTHER | END 2019-05-30 07:44 | disposition home or self-care (01) | LOC: DI 07:43 | PROVIDERS: ATTEND Internal Medicine Cardiovascular Disease | DX: Z09 Encounter for follow-up examination after completed treatment for conditions other than malignant neoplasm (principal); Z95.2 Presence of prosthetic heart valve; Z98.890 Other specified postprocedural states; Z86.79 Personal history of other diseases of the circulatory system | CPT/HCPCS: 93306 ==

== ENCOUNTER 2019-11-13 08:00 | Outpatient (CLI) | payer OTHER | END 2019-11-13 23:59 | disposition home or self-care (01) | LOC: LAB.R 08:00 | PROVIDERS: ATTEND Physician Assistant Medical | DX: R31.9 Hematuria, unspecified (principal) | CPT/HCPCS: 87086 ==

== ENCOUNTER 2019-11-15 07:42 | Outpatient (CLI) | payer OTHER ==
[2019-11-15 12:39] LABS: BASOPHILS # (AUTO) 0.1 10^3/uL (0.0-0.1); BASOPHILS % (AUTO) 1.1 %; EOSINOPHILS # (AUTO) 0.5 10^3/uL (0.0-0.7); EOSINOPHILS % (AUTO) 7.1 %; HGB - HEMOGLOBIN 17.2 g/dL (14.0-18.0); LYMPHOCYTES # (AUTO) 1.1 10^3/uL (1.5-3.5); LYMPHOCYTES % (AUTO) 16.1 %; MEAN CORPUSCULAR HEMOGLOBIN 29.4 pg (27.0-31.0); MEAN CORPUSCULAR HGB CONC 31.8 g/dL (32.0-36.0); MEAN CORPUSCULAR VOLUME 92.5 fL (80.0-94.0); MEAN PLATELET VOLUME 10.4 fL (7.4-11.4); MONOCYTES # (AUTO) 0.7 10^3/uL (0.0-1.0); MONOCYTES % (AUTO) 10.4 %; NEUTROPHILS # (AUTO) 4.3 10^3/uL (1.5-6.6); PLT - PLATELET COUNT 294 10^3/uL (130-450); RED BLOOD COUNT 5.85 10^6/uL (4.70-6.10); RED CELL DISTRIBUTION WIDTH 14.3 % (12.0-15.0); WHITE BLOOD COUNT 6.7 x10^3/uL (4.8-10.8)
[2019-11-15 13:09] LABS: ALBUMIN 4.5 g/dL (3.2-5.5); ALBUMIN/GLOBULIN RATIO 1.4 (1.0-2.2); ALKALINE PHOSPHATASE 69 IU/L (42-121); ALT ALANINE AMINOTRANSFERASE 68 IU/L (10-60); AST ASPARTATE AMINOTRANSFERASE 38 IU/L (10-42); BILIRUBIN,TOTAL 1.1 mg/dL (0.2-1.0); BUN - BLOOD UREA NITROGEN 25 mg/dL (6-20); CALCIUM 9.6 mg/dL (8.5-10.3); CARBON DIOXIDE - CO2 28 mmol/L (21-32); CHLORIDE 106 mmol/L (101-111); CHOL/HDL RATIO 3.8 (<5.0); CHOLESTEROL 154 mg/dL; CREATININE 1.2 mg/dL (0.6-1.2); GFR - MDRD 62 (>89); GLUCOSE 94 mg/dL (70-100); HDL CHOLESTEROL 41 mg/dL; LDL CHOLESTEROL,CALCULATED 89 mg/dL; LDL/HDL RATIO 2.2 (<3.6); SODIUM 140 mmol/L (135-145); TOTAL PROTEIN 7.8 g/dL (6.7-8.2); VLDL CHOLESTEROL 24 mg/dL
== END 2019-11-15 23:59 | disposition home or self-care (01) ==
LOC: LAB.WCP 07:42
PROVIDERS: ATTEND Family Medicine
DX: I48.91 Unspecified atrial fibrillation (principal); I38 Endocarditis, valve unspecified; I10 Essential (primary) hypertension; J32.9 Chronic sinusitis, unspecified; R31.9 Hematuria, unspecified
CPT/HCPCS: 36415; 80053; 80061; 83721; 84443; 85025

== ENCOUNTER 2019-11-17 08:58 | Outpatient (CLI) | payer OTHER ==
[2019-11-17] MEDS ORDERED: IOVERSOL 320 100 ML VIAL IVP ONE ×2 (09:07→09:57)
--- NOTE | 2019-11-19 02:27 | CT Report ---
Reason: HEMATURIA Procedure Date: 11/17/2019 Accession Number: [id number] / [id number] Procedure: CT - ABDOMEN/PELVIS W/WO CPT Code: Final Report FULL RESULT: EXAM: CT ABDOMEN AND PELVIS WITHOUT AND WITH CONTRAST (CT IVP) EXAM DATE: 11/17/2019 09:54 AM. CLINICAL HISTORY: Hematuria. COMPARISONS: ABDOMEN ANGIO 01/08/2018 6:13 AM. TECHNIQUE: Axial helical multidetector images are acquired before and after intravenous contrast. Post contrast images are acquired using a split bolus technique. IV Contrast: 100 mL of Optiray 320. Reconstructions: Coronal and sagittal. In accordance with CT protocol optimization, one or more of the following dose reduction techniques were utilized for this exam: automated exposure control, adjustment of mA and/or KV based on patient size, or use of iterative reconstructive technique. FINDINGS: Lower chest: Cardiac valvular prosthesis. Normal heart size. No pericardial effusion. No significant consolidation or effusion. Liver: Normal. No masses. Gallbladder/Bile Ducts: Contracted. No calcified gallstones. Spleen: Normal. Pancreas: Normal. Adrenal Glands: Normal. Kidneys/Bladder: Right Kidney/Ureter: There are 2 stones within the right upper and lower kidney measuring less than 4 mm. No hydronephrosis or hydroureter. No masses. Left Kidney/Ureter: There are 2 punctate stones within the left lower kidney. No hydronephrosis or hydroureter. No suspicious masses. There is a cyst arising from the lower pole of the left kidney measuring 3.5 x 2.7 cm (image 41 series 4). Bladder: No stones. No wall thickening or mass. Peritoneal Cavity/Bowel: Normal. No free fluid, free air or adenopathy. No masses or acute inflammatory process. Pelvic Organs: Moderate prostate calcification. Vasculature: Previous known aortic dissection is again seen, with intimal calcification displacement. Dissection extends into the proximal common iliac vessels bilaterally. On the right, dissection may extend into the superficial femoral artery. Bones: No significant abnormality. Degenerative change within the lumbar spine. No suspicious bone lesions. Other: There is a small fat-containing right inguinal hernia. IMPRESSION: 1. Bilateral intrarenal kidney stones, at least 2 within each kidney. These measure less than 4 mm. There is no hydronephrosis. 2. No suspicious renal lesion noted at this time. There is no suspicious urinary collecting system filling defect evident on this exam. There is a cyst arising from the lower pole of the left kidney, measuring 3.5 x 2.7 cm. RADIA
== END 2019-11-17 08:59 | disposition home or self-care (01) ==
LOC: DI 08:58
PROVIDERS: ATTEND Family Medicine
DX: R31.9 Hematuria, unspecified (principal); N20.0 Calculus of kidney
CPT/HCPCS: 74178; Q9967

== ENCOUNTER 2019-12-04 08:51 | Outpatient (CLI) | payer OTHER ==
[2019-12-04 12:09] LABS: BASOPHILS # (AUTO) 0.1 10^3/uL (0.0-0.1); BASOPHILS % (AUTO) 1.1 %; EOSINOPHILS # (AUTO) 0.4 10^3/uL (0.0-0.7); EOSINOPHILS % (AUTO) 5.2 %; HGB - HEMOGLOBIN 16.8 g/dL (14.0-18.0); LYMPHOCYTES # (AUTO) 1.1 10^3/uL (1.5-3.5); LYMPHOCYTES % (AUTO) 14.3 %; MEAN CORPUSCULAR HEMOGLOBIN 30.2 pg (27.0-31.0); MEAN CORPUSCULAR HGB CONC 33.3 g/dL (32.0-36.0); MEAN CORPUSCULAR VOLUME 90.6 fL (80.0-94.0); MEAN PLATELET VOLUME 10.4 fL (7.4-11.4); MONOCYTES # (AUTO) 0.7 10^3/uL (0.0-1.0); MONOCYTES % (AUTO) 9.8 %; NEUTROPHILS # (AUTO) 5.2 10^3/uL (1.5-6.6); NEUTROPHILS % (AUTO) 69.5 %; PLT - PLATELET COUNT 247 10^3/uL (130-450); RED BLOOD COUNT 5.56 10^6/uL (4.70-6.10); WHITE BLOOD COUNT 7.5 x10^3/uL (4.8-10.8)
== END 2019-12-04 23:59 | disposition home or self-care (01) ==
LOC: LAB.WCP 08:51
PROVIDERS: ATTEND Family Medicine
DX: D75.1 Secondary polycythemia (principal)
CPT/HCPCS: 36415; 85025

== ENCOUNTER 2020-09-19 10:18 | Outpatient (CLI) | payer OTHER | END 2020-09-19 10:19 | disposition home or self-care (01) | LOC: LAB 10:18 | PROVIDERS: ATTEND Urology | DX: N40.1 Benign prostatic hyperplasia with lower urinary tract symptoms (principal); Z12.5 Encounter for screening for malignant neoplasm of prostate | CPT/HCPCS: 36415; 84153 ==

== ENCOUNTER 2020-10-08 08:00 | Outpatient (CLI) | payer OTHER ==
[2020-10-08 13:05] LABS: ALBUMIN 4.5 g/dL (3.2-5.5); ALBUMIN/GLOBULIN RATIO 1.6 (1.0-2.2); ALKALINE PHOSPHATASE 65 IU/L (42-121); ALT ALANINE AMINOTRANSFERASE 34 IU/L (10-60); AST ASPARTATE AMINOTRANSFERASE 27 IU/L (10-42); BILIRUBIN,TOTAL 1.1 mg/dL (0.2-1.0); BUN - BLOOD UREA NITROGEN 24 mg/dL (6-20); CALCIUM 9.5 mg/dL (8.5-10.3); CARBON DIOXIDE - CO2 28 mmol/L (21-32); CHLORIDE 105 mmol/L (101-111); CHOL/HDL RATIO 3.5 (<5.0); CHOLESTEROL 161 mg/dL; CK- CREATINE KINASE 82 IU/L (22-269); CREATININE 1.1 mg/dL (0.6-1.2); GLUCOSE 88 mg/dL (70-100); HDL CHOLESTEROL 46 mg/dL; LDL CHOLESTEROL,CALCULATED 94 mg/dL; SODIUM 137 mmol/L (135-145); TOTAL PROTEIN 7.4 g/dL (6.7-8.2); VLDL CHOLESTEROL 21 mg/dL
== END 2020-10-08 23:59 | disposition home or self-care (01) ==
LOC: LAB.WCP 08:00
PROVIDERS: ATTEND Internal Medicine
DX: I10 Essential (primary) hypertension (principal); E78.5 Hyperlipidemia, unspecified
CPT/HCPCS: 36415; 80053; 80061; 82550; 83721

== ENCOUNTER 2021-01-24 12:20 | Day surgery (SDC) | payer OTHER ==
[2021-01-24] MEDS ORDERED: LACTATED RINGERS 1,000 ML IV ONE ×2 (13:04→16:04)
[2021-01-24] MEDS ORDERED: fentaNYL 250 MCG/5 ML VIAL ONE (15:00)
[2021-01-24] MEDS ORDERED: MIDAZOLAM 2 MG/2 ML VIAL ONE ×3 (15:00→15:52)
[2021-01-24 16:59] VITALS: BP 109/62
== END 2021-01-24 12:21 | disposition home or self-care (01) ==
LOC: SDS 12:20
PROVIDERS: ATTEND Surgery
DX: Z12.11 Encounter for screening for malignant neoplasm of colon (principal); K57.30 Diverticulosis of large intestine without perforation or abscess without bleeding; I10 Essential (primary) hypertension; I48.0 Paroxysmal atrial fibrillation; E78.00 Pure hypercholesterolemia, unspecified; I73.00 Raynaud's syndrome without gangrene; Z95.2 Presence of prosthetic heart valve; Z79.01 Long term (current) use of anticoagulants; Z79.899 Other long term (current) drug therapy
CPT/HCPCS: 45378; J3010; J7120

== ENCOUNTER 2021-10-03 08:42 | Outpatient (CLI) | payer OTHER ==
[2021-10-03 12:54] LABS: BASOPHILS # (AUTO) 0.1 10^3/uL (0.0-0.1); BASOPHILS % (AUTO) 1.2 %; EOSINOPHILS # (AUTO) 0.6 10^3/uL (0.0-0.7); EOSINOPHILS % (AUTO) 9.1 %; HCT - HEMATOCRIT 51.7 % (42.0-52.0); HGB - HEMOGLOBIN 17.1 g/dL (14.0-18.0); LYMPHOCYTES % (AUTO) 13.7 %; MEAN CORPUSCULAR HEMOGLOBIN 30.4 pg (27.0-31.0); MEAN CORPUSCULAR HGB CONC 33.1 g/dL (32.0-36.0); MEAN PLATELET VOLUME 10.4 fL (7.4-11.4); MONOCYTES # (AUTO) 0.8 10^3/uL (0.0-1.0); MONOCYTES % (AUTO) 11.6 %; NEUTROPHILS # (AUTO) 4.4 10^3/uL (1.5-6.6); PLT - PLATELET COUNT 206 10^3/uL (130-450); RED BLOOD COUNT 5.62 10^6/uL (4.70-6.10); RED CELL DISTRIBUTION WIDTH 14.4 % (12.0-15.0); WHITE BLOOD COUNT 6.9 x10^3/uL (4.8-10.8)
== END 2021-10-03 08:43 | disposition home or self-care (01) ==
LOC: LAB.N 08:42
PROVIDERS: ATTEND Internal Medicine
DX: H53.9 Unspecified visual disturbance (principal)
CPT/HCPCS: 36415; 85025; 85651; 86140

== ENCOUNTER 2021-10-29 12:38 | Outpatient (CLI) | payer OTHER ==
--- NOTE | 2021-10-29 16:52 | Ultrasound Report ---
PROCEDURE: Carotid Doppler Complete INDICATIONS: BILATERAL LEG PAIN, VISUAL DISTURBANCE TECHNIQUE: Color and pulse Doppler interrogation was performed of both carotid systems, with image documentation and velocity measurements. COMPARISON: Carotid ultrasound 05/25/2018 FINDINGS: Right side: Brachial blood pressure: 134/76 mm Hg. Common carotid artery peak systolic velocity: 105 cm/sec. Internal carotid artery peak systolic velocity: 64 cm/sec. Internal carotid artery end diastolic velocity: 19 cm/sec. External carotid artery peak systolic velocity: 96 cm/sec. ICA/CCA peak systolic ratio: 0.5 . Sifuentes scale imaging description: Minimal plaque at the bifurcation. Percent internal carotid artery stenosis: Less than 50% stenosis, improved compared to prior exam . Vertebral artery: Flow direction is antegrade. Left side: Brachial blood pressure: 143/81 mm Hg. Common carotid artery peak systolic velocity: 106 cm/sec. Internal carotid artery peak systolic velocity: 78 cm/sec. Internal carotid artery end diastolic velocity: 16 cm/sec. External carotid artery peak systolic velocity: 91 cm/sec. ICA/CCA peak systolic ratio: 0.7 . Sifuentes scale imaging description: Mild plaque at the bifurcation Percent internal carotid artery stenosis: Less than 50% stenosis, unchanged . Vertebral artery: Flow direction is antegrade. IMPRESSION: 50% stenosis internal carotid arteries bilaterally, improved on the right compared to prior exam. The estimate of stenosis included in the report of the imaging study was calculated using the NASCET method Reviewed by: Frieda Escobar MD on 10/29/2021 4:50 PM PST Approved by: Frieda Escobar MD on 10/29/2021 4:50 PM PST Station ID: [id number]
--- NOTE | 2021-10-29 16:54 | Ultrasound Report ---
PROCEDURE: Duplex Lwr Ext Arterial Bilat INDICATIONS: BILATERAL LEG PAIN, VISUAL DISTURBANCE TECHNIQUE: Color and pulse Doppler interrogation was performed of both lower extremity arterial systems, with im age documentation. COMPARISON: None FINDINGS: Right lower extremity: Common femoral artery: 81 cm/sec, with triphasic flow. Deep femoral artery: 90 cm/sec, with triphasic flow. Proximal superficial femoral artery: 170 cm/sec, with tract flow. Mid superficial femoral artery: 98 cm/sec, with triphasic flow. Distal superficial femoral artery: 46 cm/sec, with triphase flow. Popliteal artery: 41 cm/sec, with triphasic flow. Posterior tibial artery: 48 cm/sec, with triphasic flow. Anterior tibial artery/dorsalis pedis: 75 cm/sec, with triphasic flow. Sifuentes-scale imaging description: Negative Left lower extremity: Common femoral artery: 80 cm/sec, with triphasic flow. Deep femoral artery: 59 cm/sec, with triphasic flow. Proximal superficial femoral artery: 120 cm/sec, with triphasic flow. Mid superficial femoral artery: 89 cm/sec, with triphasic flow. Distal superficial femoral artery: 51 cm/sec, with triphasic flow. Popliteal artery: 53 cm/sec, with triphasic flow. Posterior tibial artery: 54 cm/sec, with triphasic flow. Anterior tibial artery/dorsalis pedis: 71 cm/sec, with triphasic flow. Sifuentes-scale imaging description: Negative IMPRESSION: No evidence of arterial insufficiency to the lower extremities. Reviewed by: Vaibhav Gruber MD on 10/29/2021 4:53 PM PST Approved by: Vaibhav Gruber MD on 10/29/2021 4:53 PM PST Station ID: [id number]
--- NOTE | 2021-10-29 21:49 | Ultrasound Report ---
PROCEDURE: Duplex Aorta Complete INDICATIONS: BILATERAL LEG PAIN, VISUAL DISTURBANCE TECHNIQUE: Color and pulse Doppler interrogation was performed of the aorta and iliac arterial systems, with marquis ge documentation. COMPARISON: None. FINDINGS: Aorta: 239 cm/sec Right lower extremity: Proximal common iliac artery: 117cm/sec, with biphasic flow. Distal common iliac artery: 85 cm/sec, with biphasic flow. Proximal external iliac artery: 107 cm/sec, with biphasic flow. Distal external iliac artery: 158 cm/sec, with biphasic flow. Common femoral artery: 83 cm/sec, with triphasic flow. Sifuentes-scale imaging description: Known dissection within the infrarenal abdominal aorta extending to the iliacs. Left lower extremity: Proximal common iliac artery: 174 cm/sec, with biphasic flow. Distal common iliac artery: 137 cm/sec, with biphasic flow. Proximal external iliac artery: 132 cm/sec, with biphasic flow. Distal external iliac artery: 110 cm/sec, with biphasic flow. Common femoral artery: 76 cm/sec, with triphasic flow. Sifuentes-scale imaging description: No dissection within the infrarenal abdominal aorta extending to the iliacs. IMPRESSION: Known dissection as above. No hemodynamically significant stenosis. Reviewed by: Frieda Escobar MD on 10/29/2021 9:47 PM PST Approved by: Frieda Escobar MD on 10/29/2021 9:47 PM PST Station ID: [id number]
== END 2021-10-29 12:39 | disposition home or self-care (01) ==
LOC: DI 12:38
PROVIDERS: ATTEND Internal Medicine
DX: M79.605 Pain in left leg (principal); M79.604 Pain in right leg; I71.02 Dissection of abdominal aorta; H53.9 Unspecified visual disturbance; I65.23 Occlusion and stenosis of bilateral carotid arteries
CPT/HCPCS: 93880; 93925; 93978